=== PATIENT | female | born 1970 | race Two or more races ===

== ENCOUNTER 2019-02-02 18:25 | Inpatient (IN) | payer MEDICAID ==
[~2019-02-02] VITALS: Ht 157.5 cm; Wt 145.9 kg
[2019-02-02] MEDS ORDERED: normal saline 1000ML IV soln IV ONE (18:55)
[2019-02-02] MEDS ORDERED: clindamycin phosphate inj 600 MG in normal saline 50ml IV soln 50 ML IV ONE (18:55)
[2019-02-02] MEDS ORDERED: piperacillin/tazo 3.375gm/50ml 50 ML IV ONE (18:55)
[2019-02-02] MEDS ORDERED: vancomycin/NS 1 GM ADD-VANTAGE 250 ML IV ONE (18:55)
[2019-02-02 19:16] LABS: BASOPHILS % (AUTO) 0 % (0-1); EOSINOPHILS # (AUTO) 0.4 X10'3 (0-0.9); EOSINOPHILS % (AUTO) 1.6 % (0-6); HEMATOCRIT 40.1 % (35.0-45.0); HEMOGLOBIN 13.9 g/dl (12.0-16.0); LYMPHOCYTES # (AUTO) 1.7 X10'3 (1.1-4.8); LYMPHOCYTES % (AUTO) 7.5 % (21-51); MEAN CORPUSCULAR HEMOGLOBIN 31.7 PG (27.0-31.0); MEAN CORPUSCULAR HGB CONC 34.7 g/dL (33.0-36.5); MEAN CORPUSCULAR VOLUME 91.5 FL (78-98); MEAN PLATELET VOLUME 9.6 FL (7.4-10.4); MONOCYTES # (AUTO) 0.5 X10'3 (0-0.9); MONOCYTES % (AUTO) 2.3 % (2-12); NEUTROPHILS # (AUTO) 20.4 X10'3 (1.8-7.7); NEUTROPHILS % (AUTO) 88.6 % (42-75); PLATELET COUNT 207 X10'3 (140-440); RED BLOOD COUNT 4.38 X10'6 (4.20-5.60); RED CELL DISTRIBUTION WIDTH 12.8 % (11.5-14.5)
[2019-02-02] MEDS ORDERED: METF500T PO (19:20)
[2019-02-02] MEDS ORDERED: NPH,100V2 SQ (19:20)
[2019-02-02] MEDS ORDERED: clindamycin 600mg/D5W 50ml 50 ML IV ONE ×2 (19:21→19:40)
[2019-02-02 19:25] LABS: PARTIAL THROMBOPLASTIN TIME 23 SECONDS (22-32)
[2019-02-02 19:27] LABS: ALANINE AMINOTRANSFERASE 34 U/L (12-78); ALBUMIN 2.1 G/DL (3.4-5.0); ALBUMIN/GLOBULIN RATIO 0.4 (1.1-1.5); ALKALINE PHOSPHATASE 139 IU/L (46-116); ANION GAP 12 (8-16); ASPARTATE AMINO TRANSFERASE 15 U/L (10-37); BILIRUBIN,TOTAL 0.8 MG/DL (0.1-1.0); BLOOD UREA NITROGEN 12 MG/DL (7-18); BUN/CREATININE RATIO 18.2 (6.6-38.0); CALCIUM 7.7 MG/DL (8.5-10.1); CHLORIDE 100 MMOL/L (99-107); CREATININE 0.66 MG/DL (0.40-0.90); GLUCOSE 290 MG/DL (70-104); MAGNESIUM 1.4 MG/DL (1.5-2.4); POTASSIUM 3.5 MMOL/L (3.5-5.1); SODIUM 134 MMOL/L (135-145); TOTAL CARBON DIOXIDE 21.6 MMOL/L (24-32); TOTAL PROTEIN 6.9 G/DL (6.4-8.2); eGFR > 90 ML/MIN
--- NOTE | 2019-02-02 19:51 | NUR ---
Patient is resting comfortably in bed with no complaints at this time.
--- NOTE | 2019-02-02 20:00 | NUR ---
PATIENT IN BED COVERS ON EYES CLOSED MAKING PURPOSEFUL MOVEMENTS RR EVEN UN LABORED NO OBSERVABLE S/S OF ACUTE STRESS AT THIS TIME
[2019-02-02] MEDS ORDERED: acetaminophen 325mg tablet PO PRN ×2 (20:15)
[2019-02-02] MEDS ORDERED: potassium CL 10mEq/100ml bag 100 ML IV PRN (20:15)
[2019-02-02] MEDS ORDERED: glucagon, human recombinant 1mg kit SUBCUT PRN (20:15)
[2019-02-02] MEDS ORDERED: magnesium 4gm in 100ml NS 100 ML IV PRN (20:15)
[2019-02-02] MEDS ORDERED: dextrose ORAL solution 15 GM/59 ML bottle PO PRN ×2 (20:15)
[2019-02-02] MEDS ORDERED: dextrose 50%-water 50ml dispensing syringe IV PRN ×2 (20:15)
[2019-02-02] MEDS ORDERED: ondansetron/PF 4mg/2ml inj IV PRN (20:15)
[2019-02-02] MEDS ORDERED: MESSAGE TO PHARMACY PO ONE (20:15)
[2019-02-02] MEDS ORDERED: midazolam 2 mg/2 ml injection ONE ×2 (20:39→23:37)
[2019-02-02] MEDS ORDERED: fentaNYL /PF 50mcg/ml 5ml ampule ONE (20:40)
[2019-02-02 20:42] LABS: HEMOGLOBIN A1C 11.4 % (4.5-6.2)
[2019-02-02] MEDS: insulin glargine (Lantus) pen - multi-dose SQ SCH (21:00)
[2019-02-02] MEDS ORDERED: sevoflurane 250ml liquid IH ONE (21:15)
[2019-02-02] MEDS ORDERED: insulin regular, human vial - multi-dose ONE (22:23)
[2019-02-02] MEDS ORDERED: ipratropium/albuterol 3ml nebule NEB PRN (22:45)
[2019-02-02] MEDS ORDERED: rocuronium 10mg/ml inj IV ONE (22:59)
[2019-02-02] MEDS ORDERED: propofol inj 20 ML IV ONE (22:59)
[2019-02-02] MEDS ORDERED: succinylcholine 20mg/ml inj IV ONE (22:59)
[2019-02-02] MEDS ORDERED: LIDOcaine 2% (20mg/ml) 5ml vial ONE (22:59)
[2019-02-02] MEDS ORDERED: morphine 10mg/ml inj. ONE (22:59)
[2019-02-02] MEDS ORDERED: ketamine 50mg/5ml syringe ONE (23:20)
[2019-02-02] MEDS ORDERED: phenylephrine 10mg/ml inj. ONE (23:22)
--- NOTE | 2019-02-02 23:30 | NUR ---
patient to bed [address] mccartney at bedside, patient is to stay intubated and back to or in am
[2019-02-02] MEDS ORDERED: fentaNYL/PF 50MCG/1 ML 2ML syringe ONE (23:36)
[2019-02-02] MEDS ORDERED: insulin regular, human 10 units/0.1 ml syringe IV ONE (23:50)
[2019-02-02 23:53] VITALS: BP 151/63
[2019-02-03] VITALS (27 sets, daily range): BP systolic 85–140; BP diastolic 52–70
[2019-02-03 00:01] LABS: ABG BASE EXCESS -10.7 mmol/L (-2.0-3.0); ABG PCO2 (T) 33.2 mmHg (35.0-45.0); ABG PH (T) 7.274 (7.350-7.450); ABG PO2 (T) 225.8 mmHg (83-108); FCOHb 0.2 % (0.5-1.5); FO2Hb 98.8 % (94-100); MINUTE VOLUME 8 L/min; PATIENT TEMPERATURE 37.1; PEEP 5 cm H2O; RESPIRATORY RATE 12 b/min; RESPIRATORY RATE (OBSERVED) 12 b/min; TIDAL VOLUME 650 mL; TOTAL HEMOGLOBIN 12.2 G/dl (12.0-16.0)
[2019-02-03] MEDS ORDERED: insulin regular, human 10 units/0.1 ml syringe IV ONE (00:10)
[2019-02-03] MEDS: midazolam 100mg in NS 100ml 100 ML IV PRN (00:16)
[2019-02-03] MEDS: FENTANYL-0.9 % NACL/PF 100 ML IV PRN ×2 (00:17→21:23)
[2019-02-03 00:28] LABS: BASOPHILS # (AUTO) 0.1 X10'3 (0-0.2); BASOPHILS % (AUTO) 0.3 % (0-1); EOSINOPHILS # (AUTO) 0.1 X10'3 (0-0.9); EOSINOPHILS % (AUTO) 0.4 % (0-6); HEMATOCRIT 36.8 % (35.0-45.0); HEMOGLOBIN 12.7 g/dl (12.0-16.0); LYMPHOCYTES # (AUTO) 2.7 X10'3 (1.1-4.8); LYMPHOCYTES % (AUTO) 13.2 % (21-51); MEAN CORPUSCULAR HEMOGLOBIN 31.5 PG (27.0-31.0); MEAN CORPUSCULAR HGB CONC 34.4 g/dL (33.0-36.5); MEAN CORPUSCULAR VOLUME 91.7 FL (78-98); MEAN PLATELET VOLUME 9.8 FL (7.4-10.4); MONOCYTES # (AUTO) 0.3 X10'3 (0-0.9); MONOCYTES % (AUTO) 1.5 % (2-12); NEUTROPHILS # (AUTO) 17.4 X10'3 (1.8-7.7); NEUTROPHILS % (AUTO) 84.6 % (42-75); PLATELET COUNT 191 X10'3 (140-440); RED BLOOD COUNT 4.02 X10'6 (4.20-5.60); WHITE BLOOD COUNT 20.6 X10'3 (4.5-11.0)
[2019-02-03 00:40] LABS: PARTIAL THROMBOPLASTIN TIME 30 SECONDS (22-32)
[2019-02-03 00:43] LABS: ALANINE AMINOTRANSFERASE 27 U/L (12-78); ALBUMIN 1.7 G/DL (3.4-5.0); ALBUMIN/GLOBULIN RATIO 0.4 (1.1-1.5); ALKALINE PHOSPHATASE 114 IU/L (46-116); ANION GAP 12 (8-16); ASPARTATE AMINO TRANSFERASE 16 U/L (10-37); BILIRUBIN,TOTAL 0.7 MG/DL (0.1-1.0); BLOOD UREA NITROGEN 10 MG/DL (7-18); BUN/CREATININE RATIO 16.4 (6.6-38.0); CALCIUM 7.3 MG/DL (8.5-10.1); CHLORIDE 105 MMOL/L (99-107); CREATININE 0.61 MG/DL (0.40-0.90); GLUCOSE 202 MG/DL (70-104); MAGNESIUM 1.2 MG/DL (1.5-2.4); SODIUM 136 MMOL/L (135-145); TOTAL CARBON DIOXIDE 18.6 MMOL/L (24-32); TOTAL PROTEIN 5.6 G/DL (6.4-8.2); eGFR > 90 ML/MIN
[2019-02-03 00:44] LABS: POTASSIUM 2.6 MMOL/L (3.5-5.1)
[2019-02-03] MEDS ORDERED: potassium Cl 20 mEq SR tablet PO PRN (00:55)
--- NOTE | 2019-02-03 00:59 | NUR ---
patients contact information, daughter Maritza [phone] son Ricardo [phone]
[2019-02-03] MEDS: Potassium Cl inj 20 MEQ in ringers solution, lacted 1,000 ML IV SCH ×4 (01:06→18:10)
[2019-02-03] MEDS: piperacillin/tazo 3.375gm/50ml 50 ML IV SCH ×3 (01:06→16:07)
--- NOTE | 2019-02-03 01:41 | NUR ---
other family contact # [phone] son Emmanuel
[2019-02-03] MEDS: clindamycin 600mg/D5W 50ml 50 ML IV SCH ×4 (02:38→20:09)
--- NOTE | 2019-02-03 03:36 | NUR ---
patient in bed eyes closed rr even un labored no observable s/s of acute stress at this time
[2019-02-03] MEDS: potassium Cl 20mEq/100mL bag 100 ML IV PRN (03:53)
[2019-02-03 05:11] LABS: ABG BASE EXCESS -10.2 mmol/L (-2.0-3.0); ABG HCO3 13.8 mmol/L (22.0-26.0); ABG OXYGEN SATURATION 98.9 % (95-98); ABG PCO2 (T) 26.6 mmHg (35.0-45.0); ABG PH (T) 7.337 (7.350-7.450); ABG PO2 (T) 176.4 mmHg (83-108); FCOHb 0.4 % (0.5-1.5); FMetHb 0.1 % (0.3-1.12); FO2Hb 98.4 % (94-100); MINUTE VOLUME 9 L/min; PATIENT TEMPERATURE 37.6; PEEP 5 cm H2O; RESPIRATORY RATE 12 b/min; RESPIRATORY RATE (OBSERVED) 13 b/min; TIDAL VOLUME 650 mL; TOTAL HEMOGLOBIN 12.1 G/dl (12.0-16.0)
[2019-02-03 06:09] LABS: BASOPHILS # (AUTO) 0.1 X10'3 (0-0.2); BASOPHILS % (AUTO) 0.3 % (0-1); EOSINOPHILS # (AUTO) 0.1 X10'3 (0-0.9); EOSINOPHILS % (AUTO) 0.5 % (0-6); HEMATOCRIT 34.8 % (35.0-45.0); HEMOGLOBIN 11.9 g/dl (12.0-16.0); LYMPHOCYTES # (AUTO) 2.5 X10'3 (1.1-4.8); LYMPHOCYTES % (AUTO) 11.6 % (21-51); MEAN CORPUSCULAR HEMOGLOBIN 31.5 PG (27.0-31.0); MEAN CORPUSCULAR HGB CONC 34.2 g/dL (33.0-36.5); MEAN CORPUSCULAR VOLUME 91.9 FL (78-98); MEAN PLATELET VOLUME 10.1 FL (7.4-10.4); MONOCYTES # (AUTO) 1.4 X10'3 (0-0.9); MONOCYTES % (AUTO) 6.5 % (2-12); NEUTROPHILS # (AUTO) 17.6 X10'3 (1.8-7.7); NEUTROPHILS % (AUTO) 81.1 % (42-75); PLATELET COUNT 190 X10'3 (140-440); RED BLOOD COUNT 3.79 X10'6 (4.20-5.60); WHITE BLOOD COUNT 21.7 X10'3 (4.5-11.0)
[2019-02-03 06:18] LABS: ALANINE AMINOTRANSFERASE 22 U/L (12-78); ALBUMIN 1.6 G/DL (3.4-5.0); ALBUMIN/GLOBULIN RATIO 0.4 (1.1-1.5); ALKALINE PHOSPHATASE 113 IU/L (46-116); ANION GAP 12 (8-16); ASPARTATE AMINO TRANSFERASE 15 U/L (10-37); BILIRUBIN,TOTAL 0.7 MG/DL (0.1-1.0); BLOOD UREA NITROGEN 7 MG/DL (7-18); BUN/CREATININE RATIO 13.7 (6.6-38.0); CALCIUM 7.1 MG/DL (8.5-10.1); CHLORIDE 106 MMOL/L (99-107); CREATININE 0.51 MG/DL (0.40-0.90); GLUCOSE 217 MG/DL (70-104); MAGNESIUM 1.2 MG/DL (1.5-2.4); PHOSPHORUS 2.2 MG/DL (2.3-4.5); POTASSIUM 3.7 MMOL/L (3.5-5.1); SODIUM 138 MMOL/L (135-145); TOTAL CARBON DIOXIDE 19.6 MMOL/L (24-32); TOTAL PROTEIN 5.5 G/DL (6.4-8.2); eGFR > 90 ML/MIN
--- NOTE | 2019-02-03 06:24 | NUR ---
SBAR TO MIKAYLA RN NO QUESTIONS OR CONCERNS AFTER ASSUMING CARE
[2019-02-03] MEDS: K and/or MAG REPLACEMENT MC SCH (08:00)
[2019-02-03] MEDS: pantoprazole 40 MG vial IV SCH (08:22)
[2019-02-03] MEDS: insulin Lispro (HumaLOG) vial - multi-dose SQ SCH ×3 (08:42→20:24)
[2019-02-03 09:31] LABS: PLATELET ESTIMATE NORMAL; TOTAL CELLS COUNTED 100
[2019-02-03 09:32] LABS: TOXIC GRANULATION 1+; TOXIC VACUOLATION FEW
--- NOTE | 2019-02-03 10:26 | NUR ---
Pt resting comfortably. Pt able to answer some questions appropriately via hand squeezing and head nods and shakes. Pt stated she was having some pain,
[2019-02-03] MEDS ORDERED: UNABLE TO OBTAIN (12:35)
[2019-02-03 14:06] LABS: CLARITY,URINE SLIGHTLY CLOUDY (Clear); COLOR,URINE YELLOW (Yellow); GLUCOSE, URINE 250 mg/dl (Neg); KETONES,URINE >=80 mg/dl (Neg); LEUKOCYTE ESTERASE ,URINE NEGATIVE (Neg); NITRITES, URINE NEGATIVE (Neg); OCCULT BLOOD,URINE SMALL (Neg); PH,URINE 5.5 (4.8-8.0); PROTEIN,URINE NEGATIVE (Neg); UROBILINOGEN,URINE >=8.0 E.U/dL (0.2-1.0)
[2019-02-03 14:10] LABS: UA COLLECTION TYPE FOLEY CATH
[2019-02-03 14:20] LABS: MUCUS STRANDS FEW /LPF (Neg); SQUAMOUS EPITHELIAL CELL,UR FEW /LPF (FEW)
[2019-02-03 14:21] LABS: RBC,URINE 0-2 /HPF (0-2); WBC,URINE 0-4 /HPF (0-4)
[2019-02-03 14:22] LABS: AMORPHOUS URATES 1+; BACTERIA,URINE FEW /HPF (Neg)
--- NOTE | 2019-02-03 15:15 | NUR ---
Initial Assessment: Pt was diagnosis with Type 2 DM 6 months ago, but did not start taking medications until this Friday; A1C 11.4. Pt is admitted to the unit with dx of Lana's gangrene. s/p extensive debridement of the medial thigh and perineum for the Lana Gangrene. Pt is currently on ventilator for OR. If not, will work on weaning her off ventilator noted by MD. Continues to be NPO, will start tube feed if not going back for OR per MD. Will continue to monitor. Recommendations: 1. If TF per MD; Vital High Protein at goal rate 80ml/hr 2. Bowel care routine. 3. Weekly wt 4. Upon extubation;advance diet as medically indicated to Carb Controlled Addendum: 02/03/19 at [address] Amended: Links added. Addendum: 02/03/19 at [address] LADY Hughes
--- NOTE | 2019-02-03 15:45 | NUR ---
Pt family visiting. I verified pt home meds and last time taken. Call to pharmacy with information.
[2019-02-03] MEDS ORDERED: LISI10TA4 PO (15:55)
[2019-02-03] MEDS ORDERED: INSU100V9 SQ (15:57)
--- NOTE | 2019-02-03 18:31 | NUR ---
assumed care from Bonny RN no questions or concerns after assuming care
--- NOTE | 2019-02-03 20:00 | NUR ---
SPOKE WITH PATIENTS DAUGHTER CHRISSY GAVE AN UPDATE, PATIENT IS CURRENTLY SUPINE IN BED RR EVEN UN LABORED NO OBSERVABLE S/S OF ACUTE STRESS AT THIS TIME
[2019-02-03] MEDS: insulin glargine (Lantus) pen - multi-dose SQ SCH (20:25)
--- NOTE | 2019-02-03 23:53 | NUR ---
PATIENT IN BED EYES CLOSED RR EVEN UN LABORED NO OBSERVABLE S/S OF ACUTE STRESS AT THIS TIME
[2019-02-04] VITALS (24 sets, daily range): BP systolic 79–142; BP diastolic 33–73
[2019-02-04] MEDS: piperacillin/tazo 3.375gm/50ml 50 ML IV SCH ×4 (00:05→23:53)
[2019-02-04] MEDS: midazolam 100mg in NS 100ml 100 ML IV PRN (00:06)
[2019-02-04] MEDS: mineral oil/petrolatum ophthal oint EACHEYE SCH ×4 (01:57→20:06)
[2019-02-04] MEDS: insulin Lispro (HumaLOG) vial - multi-dose SQ SCH ×2 (01:57→20:12)
[2019-02-04] MEDS: clindamycin 600mg/D5W 50ml 50 ML IV SCH ×4 (02:02→20:05)
[2019-02-04 02:53] LABS: BASOPHILS % (AUTO) 0.3 % (0-1); EOSINOPHILS # (AUTO) 0.2 X10'3 (0-0.9); EOSINOPHILS % (AUTO) 1.4 % (0-6); HEMATOCRIT 31.1 % (35.0-45.0); HEMOGLOBIN 10.9 g/dl (12.0-16.0); LYMPHOCYTES # (AUTO) 2.6 X10'3 (1.1-4.8); LYMPHOCYTES % (AUTO) 16.3 % (21-51); MEAN CORPUSCULAR VOLUME 91.3 FL (78-98); MEAN PLATELET VOLUME 9.6 FL (7.4-10.4); MONOCYTES # (AUTO) 1.1 X10'3 (0-0.9); MONOCYTES % (AUTO) 7.3 % (2-12); NEUTROPHILS # (AUTO) 11.7 X10'3 (1.8-7.7); NEUTROPHILS % (AUTO) 74.7 % (42-75); PLATELET COUNT 172 X10'3 (140-440); WHITE BLOOD COUNT 15.7 X10'3 (4.5-11.0)
[2019-02-04 03:07] LABS: ALANINE AMINOTRANSFERASE 19 U/L (12-78); ALBUMIN 1.4 G/DL (3.4-5.0); ALBUMIN/GLOBULIN RATIO 0.4 (1.1-1.5); ALKALINE PHOSPHATASE 101 IU/L (46-116); ANION GAP 14 (8-16); ASPARTATE AMINO TRANSFERASE 12 U/L (10-37); BILIRUBIN,TOTAL 0.6 MG/DL (0.1-1.0); BLOOD UREA NITROGEN 3 MG/DL (7-18); CALCIUM 7.1 MG/DL (8.5-10.1); CHLORIDE 105 MMOL/L (99-107); CREATININE 0.43 MG/DL (0.40-0.90); GLUCOSE 190 MG/DL (70-104); MAGNESIUM 1.3 MG/DL (1.5-2.4); PHOSPHORUS 1.8 MG/DL (2.3-4.5); SODIUM 140 MMOL/L (135-145); TOTAL CARBON DIOXIDE 21.5 MMOL/L (24-32); TOTAL PROTEIN 5.2 G/DL (6.4-8.2); eGFR > 90 ML/MIN
[2019-02-04] MEDS: potassium Cl 20mEq/100mL bag 100 ML IV PRN ×4 (03:21→07:56)
[2019-02-04] MEDS: Potassium Cl inj 20 MEQ in ringers solution, lacted 1,000 ML IV SCH ×2 (03:24→15:50)
[2019-02-04] MEDS: magnesium 2GM in 50ml NS 50 ML IV PRN (03:46)
[2019-02-04 04:06] LABS: ABG HCO3 17.8 mmol/L (22.0-26.0); ABG OXYGEN SATURATION 98.3 % (95-98); FCOHb 0.3 % (0.5-1.5); FMetHb 0.3 % (0.3-1.12); FO2Hb 97.7 % (94-100); MINUTE VOLUME 8 L/min; PATIENT TEMPERATURE 37.6; PEEP 5 cm H2O; RESPIRATORY RATE 12 b/min; RESPIRATORY RATE (OBSERVED) 12 b/min; TIDAL VOLUME 650 mL; TOTAL HEMOGLOBIN 10.8 G/dl (12.0-16.0)
--- NOTE | 2019-02-04 06:20 | NUR ---
SBAR TO GABINO RN NO QUESTIONS OR CONCERNS AFTER ASSUMING CARE
[2019-02-04] MEDS: pantoprazole 40 MG vial IV SCH (07:57)
[2019-02-04] MEDS: K and/or MAG REPLACEMENT MC SCH (08:40)
[2019-02-04 10:09] LABS: MAGNESIUM 1.6 MG/DL (1.5-2.4); POTASSIUM 4.2 MMOL/L (3.5-5.1)
[2019-02-04] MEDS ORDERED: VANCOMYCIN LEVEL IV ONE (11:30)
[2019-02-04] MEDS ORDERED: sevoflurane 250ml liquid IH ONE (14:57)
--- NOTE | 2019-02-04 15:11 | NUR ---
Pt to OR with OR team.
--- NOTE | 2019-02-04 16:30 | NUR ---
Pt back form OR no apparent distress VSS will cont to monitor
[2019-02-04] MEDS: FENTANYL-0.9 % NACL/PF 100 ML IV PRN (16:38)
--- NOTE | 2019-02-04 18:29 | NUR ---
Assumed care from Nano RN no questions or concerns after assuming care
[2019-02-04] MEDS: lactobacillus rhamnosus 10,000 MMU CELLS/CAPSULE PO SCH (20:05)
[2019-02-04] MEDS: insulin glargine (Lantus) pen - multi-dose SQ SCH (20:15)
--- NOTE | 2019-02-04 21:40 | NUR ---
spoke with patients daughter "Maritza" gave patient update, patient currently supine in bed eyes closed rr even un labored no observable s/s of acute stress at this time
[2019-02-05] VITALS (24 sets, daily range): BP systolic 94–130; BP diastolic 50–79
--- NOTE | 2019-02-05 | NUR ---
patient in bed eyes closed rr even un labored no observable s/s of acute stress at this time
[2019-02-05] MEDS: Potassium Cl inj 20 MEQ in ringers solution, lacted 1,000 ML IV SCH ×3 (01:56→10:05)
[2019-02-05] MEDS: clindamycin 600mg/D5W 50ml 50 ML IV SCH ×4 (01:56→21:05)
[2019-02-05] MEDS: mineral oil/petrolatum ophthal oint EACHEYE SCH ×4 (01:56→21:05)
[2019-02-05] MEDS: insulin Lispro (HumaLOG) vial - multi-dose SQ SCH ×2 (02:07→09:30)
--- NOTE | 2019-02-05 02:50 | NUR ---
patients fever broke currently 37.2, rr even un labored no observable s/s of acute stress at this time
[2019-02-05 03:49] LABS: BASOPHILS % (AUTO) 0.1 % (0-1); EOSINOPHILS # (AUTO) 0.2 X10'3 (0-0.9); EOSINOPHILS % (AUTO) 1.4 % (0-6); HEMATOCRIT 31.8 % (35.0-45.0); LYMPHOCYTES # (AUTO) 2.6 X10'3 (1.1-4.8); LYMPHOCYTES % (AUTO) 16.3 % (21-51); MEAN CORPUSCULAR HGB CONC 34.6 g/dL (33.0-36.5); MEAN CORPUSCULAR VOLUME 92.4 FL (78-98); MEAN PLATELET VOLUME 9.2 FL (7.4-10.4); MONOCYTES # (AUTO) 1.1 X10'3 (0-0.9); MONOCYTES % (AUTO) 6.9 % (2-12); NEUTROPHILS # (AUTO) 11.9 X10'3 (1.8-7.7); NEUTROPHILS % (AUTO) 75.3 % (42-75); PLATELET COUNT 191 X10'3 (140-440); RED BLOOD COUNT 3.44 X10'6 (4.20-5.60); RED CELL DISTRIBUTION WIDTH 13.1 % (11.5-14.5); WHITE BLOOD COUNT 15.8 X10'3 (4.5-11.0)
[2019-02-05 04:00] LABS: ALANINE AMINOTRANSFERASE 17 U/L (12-78); ALBUMIN 1.4 G/DL (3.4-5.0); ALBUMIN/GLOBULIN RATIO 0.4 (1.1-1.5); ALKALINE PHOSPHATASE 100 IU/L (46-116); ANION GAP 6 (8-16); ASPARTATE AMINO TRANSFERASE 14 U/L (10-37); BILIRUBIN,TOTAL 0.7 MG/DL (0.1-1.0); BLOOD UREA NITROGEN 2 MG/DL (7-18); BUN/CREATININE RATIO 4.2 (6.6-38.0); CHLORIDE 105 MMOL/L (99-107); CREATININE 0.48 MG/DL (0.40-0.90); GLUCOSE 168 MG/DL (70-104); MAGNESIUM 1.3 MG/DL (1.5-2.4); PHOSPHORUS 2.4 MG/DL (2.3-4.5); POTASSIUM 3.5 MMOL/L (3.5-5.1); SODIUM 137 MMOL/L (135-145); TOTAL CARBON DIOXIDE 25.6 MMOL/L (24-32); TOTAL PROTEIN 5.4 G/DL (6.4-8.2); eGFR > 90 ML/MIN
[2019-02-05] MEDS: FENTANYL-0.9 % NACL/PF 100 ML IV PRN (04:29)
[2019-02-05] MEDS: magnesium 2GM in 50ml NS 50 ML IV PRN (04:29)
[2019-02-05 04:41] LABS: ABG BASE EXCESS -1.6 mmol/L (-2.0-3.0); ABG HCO3 22.3 mmol/L (22.0-26.0); ABG OXYGEN SATURATION 96.2 % (95-98); ABG PCO2 (T) 35.3 mmHg (35.0-45.0); ABG PH (T) 7.419 (7.350-7.450); ABG PO2 (T) 83.3 mmHg (83-108); FCOHb 0.1 % (0.5-1.5); FMetHb 0.3 % (0.3-1.12); FO2Hb 95.8 % (94-100); MINUTE VOLUME 8 L/min; PATIENT TEMPERATURE 37.4; PEEP 5 cm H2O; RESPIRATORY RATE 12 b/min; RESPIRATORY RATE (OBSERVED) 12 b/min; TIDAL VOLUME 600 mL; TOTAL HEMOGLOBIN 12.1 G/dl (12.0-16.0)
--- NOTE | 2019-02-05 04:51 | NUR ---
washed and cleaned patients head and put hair in a braid, patient appeared to enjoy getting hair brushed, patients rr even un labored no observable s/s of acute stress at this time
--- NOTE | 2019-02-05 06:29 | NUR ---
SBAR to Radha OSBORN no questions or concerns after assuming care
[2019-02-05] MEDS ORDERED: VANCOMYCIN LEVEL IV ONE (07:30)
[2019-02-05] MEDS: K and/or MAG REPLACEMENT MC SCH (08:00)
[2019-02-05] MEDS: lactobacillus rhamnosus 10,000 MMU CELLS/CAPSULE PO SCH ×2 (08:07→21:17)
[2019-02-05] MEDS: piperacillin/tazo 3.375gm/50ml 50 ML IV SCH ×3 (08:08→17:29)
[2019-02-05] MEDS: pantoprazole 40 MG vial IV SCH (08:13)
--- NOTE | 2019-02-05 10:51 | NUR ---
paged dr guzman regarding feeding for this patient
--- NOTE | 2019-02-05 10:53 | NUR ---
patient will remain intubated for surgery tomorrow per Dr. Adams
[2019-02-05] MEDS: midazolam 100mg in NS 100ml 100 ML IV PRN (15:51)
[2019-02-05] MEDS: vancomycin/NS 1 GM ADD-VANTAGE 250 ML IV SCH ×2 (15:57→21:54)
--- NOTE | 2019-02-05 16:57 | NUR ---
WOUND ADDRESSED, SEROUS FLUID NOTED ON UNDERWEAR AND PADS UNDERNEATH BUT, WOUND REMAINS PACKED. abd PAD APPLIED TO PROTECT THE AREA AND SOILED UNDERWEAR REMOVED. NEW DRY PADS REPLACED.
--- NOTE | 2019-02-05 17:21 | NUR ---
Reassessment(02/05): Pt is on ventilator with no vasopressor and very limited amount of sedation per RN. Has perineal wound s/p debridement yesterday. Expecting to go back to OR tomorrow per surgeon. Per MD if rectal tube place successfully to avoid soiling of the perineum, RN to discuss with surgeon if diverting colostomy is appropriate given patient's wound healing needs and hopeful start of tube feeding to provide adequate protein for wound heal. If weaning off unsuccessfully, patient may benefit from tube feeding. TF recs with Vital High Protein at goal rate 80ml/hr. Will continue to monitor. Recommendations: 1. If TF per MD; Vital High Protein at goal rate 80ml/hr 2. If tube feeding, prealbumin q friday and , daily wt 3. Upon extubation;advance diet as medically indicated to Carb Controlled Addendum: 02/05/19 at [address] Amended: Links added.
--- NOTE | 2019-02-05 18:07 | NUR ---
og TUBE REPLACED
--- NOTE | 2019-02-05 18:19 | NUR ---
Problems reprioritized. Patient report given, questions answered & plan of care reviewed with Kiel Stephen RN.
--- NOTE | 2019-02-05 18:30 | NUR ---
Patient in room CICU 2007. I have received report from Radha OSBORN and had the opportunity to ask questions and assume patient care.
[2019-02-05] MEDS: insulin glargine (Lantus) pen - multi-dose SQ SCH (21:20)
[2019-02-06] VITALS (23 sets, daily range): BP systolic 87–134; BP diastolic 46–87
[2019-02-06] MEDS: FENTANYL-0.9 % NACL/PF 100 ML IV PRN ×2 (00:57→18:25)
[2019-02-06] MEDS: mineral oil/petrolatum ophthal oint EACHEYE SCH ×4 (02:24→20:49)
[2019-02-06] MEDS: clindamycin 600mg/D5W 50ml 50 ML IV SCH ×4 (02:24→20:49)
[2019-02-06 02:58] LABS: BASOPHILS # (AUTO) 0.1 X10'3 (0-0.2); BASOPHILS % (AUTO) 0.8 % (0-1); EOSINOPHILS # (AUTO) 0.2 X10'3 (0-0.9); EOSINOPHILS % (AUTO) 1.7 % (0-6); HEMATOCRIT 30.4 % (35.0-45.0); HEMOGLOBIN 10.7 g/dl (12.0-16.0); LYMPHOCYTES # (AUTO) 2.3 X10'3 (1.1-4.8); LYMPHOCYTES % (AUTO) 17.1 % (21-51); MEAN CORPUSCULAR HEMOGLOBIN 32.3 PG (27.0-31.0); MEAN CORPUSCULAR HGB CONC 35.3 g/dL (33.0-36.5); MEAN CORPUSCULAR VOLUME 91.5 FL (78-98); MEAN PLATELET VOLUME 8.5 FL (7.4-10.4); MONOCYTES # (AUTO) 0.9 X10'3 (0-0.9); NEUTROPHILS # (AUTO) 9.7 X10'3 (1.8-7.7); NEUTROPHILS % (AUTO) 73.4 % (42-75); PLATELET COUNT 198 X10'3 (140-440); RED BLOOD COUNT 3.32 X10'6 (4.20-5.60); RED CELL DISTRIBUTION WIDTH 12.9 % (11.5-14.5); WHITE BLOOD COUNT 13.2 X10'3 (4.5-11.0)
[2019-02-06 03:06] LABS: ALANINE AMINOTRANSFERASE 15 U/L (12-78); ALBUMIN 1.2 G/DL (3.4-5.0); ALBUMIN/GLOBULIN RATIO 0.3 (1.1-1.5); ALKALINE PHOSPHATASE 92 IU/L (46-116); ANION GAP 8 (8-16); ASPARTATE AMINO TRANSFERASE 16 U/L (10-37); BILIRUBIN,TOTAL 0.6 MG/DL (0.1-1.0); BLOOD UREA NITROGEN 2 MG/DL (7-18); BUN/CREATININE RATIO 4.1 (6.6-38.0); CALCIUM 7.2 MG/DL (8.5-10.1); CHLORIDE 104 MMOL/L (99-107); CREATININE 0.49 MG/DL (0.40-0.90); GLUCOSE 142 MG/DL (70-104); MAGNESIUM 1.5 MG/DL (1.5-2.4); PHOSPHORUS 2.9 MG/DL (2.3-4.5); POTASSIUM 3.2 MMOL/L (3.5-5.1); SODIUM 138 MMOL/L (135-145); TOTAL CARBON DIOXIDE 26.4 MMOL/L (24-32); TOTAL PROTEIN 5.4 G/DL (6.4-8.2); eGFR > 90 ML/MIN
[2019-02-06] MEDS: vancomycin/NS 1 GM ADD-VANTAGE 250 ML IV SCH ×4 (03:35→20:49)
[2019-02-06] MEDS: potassium Cl 20mEq/100mL bag 100 ML IV PRN ×2 (03:46→05:11)
[2019-02-06 04:06] LABS: ABG BASE EXCESS 0.2 mmol/L (-2.0-3.0); ABG HCO3 23.5 mmol/L (22.0-26.0); ABG OXYGEN SATURATION 96.6 % (95-98); ABG PCO2 (T) 34.2 mmHg (35.0-45.0); ABG PH (T) 7.457 (7.350-7.450); ABG PO2 (T) 88.1 mmHg (83-108); FCOHb 0.1 % (0.5-1.5); FMetHb 0.3 % (0.3-1.12); FO2Hb 96.2 % (94-100); MINUTE VOLUME 8 L/min; PATIENT TEMPERATURE 37.4; PEEP 5 cm H2O; RESPIRATORY RATE 12 b/min; RESPIRATORY RATE (OBSERVED) 12 b/min; TIDAL VOLUME 600 mL; TOTAL HEMOGLOBIN 11.5 G/dl (12.0-16.0)
[2019-02-06 04:56] LABS: TOTAL CELLS COUNTED 100
[2019-02-06 04:58] LABS: PLATELET ESTIMATE NORMAL
[2019-02-06 04:59] LABS: TOXIC GRANULATION 3+
[2019-02-06 05:00] LABS: SMUDGE CELLS 2+
[2019-02-06] MEDS: Potassium Cl inj 20 MEQ in ringers solution, lacted 1,000 ML IV SCH ×2 (05:11→18:30)
--- NOTE | 2019-02-06 06:21 | NUR ---
Patient in room CICU 2008. I have received report from Malgorzata OSBORN and had the opportunity to ask questions and assume patient care.
--- NOTE | 2019-02-06 06:36 | NUR ---
Problems reprioritized. Patient report given, questions answered & plan of care reviewed with Malgorzata OSBORN.
[2019-02-06] MEDS ORDERED: VANCOMYCIN LEVEL IV ONE (07:30)
[2019-02-06] MEDS: pantoprazole 40 MG vial IV SCH (08:01)
[2019-02-06] MEDS: piperacillin/tazo 3.375gm/50ml 50 ML IV SCH ×2 (08:01→15:38)
[2019-02-06] MEDS: lactobacillus rhamnosus 10,000 MMU CELLS/CAPSULE PO SCH ×2 (08:01→20:49)
[2019-02-06 08:22] LABS: VANCOMYCIN,TROUGH 18.8 UG/ML (6.0-14.0)
[2019-02-06 08:27] LABS: POTASSIUM 3.7 MMOL/L (3.5-5.1)
[2019-02-06] MEDS ORDERED: ringers solution, lacted 1,000 ML IV SCH (09:36)
[2019-02-06] MEDS ORDERED: meperidine/PF 25mg/ml syringe IV PRN ×3 (09:40)
[2019-02-06] MEDS ORDERED: proCHLORperazine 10 MG/2 ml inj IV PRN (09:40)
[2019-02-06] MEDS ORDERED: ondansetron/PF 4mg/2ml inj IV PRN (09:40)
[2019-02-06] MEDS ORDERED: morphine 4 MG/ML inj SYRINge IV PRN ×2 (09:40)
[2019-02-06] MEDS ORDERED: sevoflurane 250ml liquid IH ONE (10:38)
[2019-02-06] MEDS ORDERED: fentaNYL /PF 50mcg/ml 5ml ampule ONE (10:50)
--- NOTE | 2019-02-06 11:14 | NUR ---
Per Dr. Adams's verbal orders, telephone consent was obtained from Ricardo (son) of the patient for a debridement of the perineum and wound vac placement w/ two RNs
[2019-02-06] MEDS: insulin Lispro (HumaLOG) vial - multi-dose SQ SCH (14:26)
--- NOTE | 2019-02-06 15:59 | NUR ---
02/06 Reassessment: Pt s/p repeat debridement with wound VAC placement today. Per MD notes pt started on TPN however no consult or TPN diet order at this time. D/w RN who states that was an error and pt is in fact not to start TPN at this time however MD to consider EN tomorrow if unable to extubate. TF recommendations below remain in place. Will f/u tomorrow. Reassessment(02/05): Pt is on ventilator with no vasopressor and very limited amount of sedation per RN. Has perineal wound s/p debridement yesterday. Expecting to go back to OR tomorrow per surgeon. Per MD if rectal tube place successfully to avoid soiling of the perineum, RN to discuss with surgeon if diverting colostomy is appropriate given patient's wound healing needs and hopeful start of tube feeding to provide adequate protein for wound heal. If weaning off unsuccessfully, patient may benefit from tube feeding. TF recs with Vital High Protein at goal rate 80ml/hr. Will continue to monitor. Recommendations: 1. If TF per MD; Vital High Protein with goal rate of 80 mL/hr 2. If tube feeding, prealbumin q Friday and , daily wt 3. Upon extubation; advance diet as medically indicated to Carb Controlled Addendum: 02/06/19 at [address] Amended: Links added.
--- NOTE | 2019-02-06 18:30 | NUR ---
Patient in room CICU 2008. I have received report from Malgorzata and had the opportunity to ask questions and assume patient care.
[2019-02-06] MEDS: insulin glargine (Lantus) pen - multi-dose SQ SCH (21:11)
[2019-02-07] VITALS (24 sets, daily range): BP systolic 87–135; BP diastolic 51–90
[2019-02-07] MEDS: piperacillin/tazo 3.375gm/50ml 50 ML IV SCH ×3 (00:38→15:25)
[2019-02-07] MEDS: mineral oil/petrolatum ophthal oint EACHEYE SCH ×4 (02:57→18:58)
[2019-02-07] MEDS: clindamycin 600mg/D5W 50ml 50 ML IV SCH ×4 (02:58→20:00)
[2019-02-07] MEDS: vancomycin/NS 1 GM ADD-VANTAGE 250 ML IV SCH ×4 (02:58→20:00)
[2019-02-07 03:20] LABS: BASOPHILS % (AUTO) 0.2 % (0-1); EOSINOPHILS # (AUTO) 0.2 X10'3 (0-0.9); EOSINOPHILS % (AUTO) 1.6 % (0-6); HEMATOCRIT 29.9 % (35.0-45.0); HEMOGLOBIN 10.4 g/dl (12.0-16.0); LYMPHOCYTES # (AUTO) 2.9 X10'3 (1.1-4.8); LYMPHOCYTES % (AUTO) 20.8 % (21-51); MEAN CORPUSCULAR HEMOGLOBIN 32.2 PG (27.0-31.0); MEAN CORPUSCULAR HGB CONC 34.9 g/dL (33.0-36.5); MEAN CORPUSCULAR VOLUME 92.3 FL (78-98); MEAN PLATELET VOLUME 8.2 FL (7.4-10.4); MONOCYTES % (AUTO) 7.2 % (2-12); NEUTROPHILS # (AUTO) 9.7 X10'3 (1.8-7.7); NEUTROPHILS % (AUTO) 70.2 % (42-75); PLATELET COUNT 215 X10'3 (140-440); RED BLOOD COUNT 3.24 X10'6 (4.20-5.60); RED CELL DISTRIBUTION WIDTH 13.3 % (11.5-14.5); WHITE BLOOD COUNT 13.7 X10'3 (4.5-11.0)
[2019-02-07 03:39] LABS: ALANINE AMINOTRANSFERASE 14 U/L (12-78); ALBUMIN 1.2 G/DL (3.4-5.0); ALBUMIN/GLOBULIN RATIO 0.3 (1.1-1.5); ALKALINE PHOSPHATASE 112 IU/L (46-116); ANION GAP 7 (8-16); ASPARTATE AMINO TRANSFERASE 20 U/L (10-37); BILIRUBIN,TOTAL 0.6 MG/DL (0.1-1.0); BLOOD UREA NITROGEN 5 MG/DL (7-18); BUN/CREATININE RATIO 8.1 (6.6-38.0); CALCIUM 7.4 MG/DL (8.5-10.1); CHLORIDE 108 MMOL/L (99-107); CREATININE 0.62 MG/DL (0.40-0.90); GLUCOSE 134 MG/DL (70-104); MAGNESIUM 1.6 MG/DL (1.5-2.4); PHOSPHORUS 3.6 MG/DL (2.3-4.5); POTASSIUM 3.7 MMOL/L (3.5-5.1); SODIUM 142 MMOL/L (135-145); TOTAL CARBON DIOXIDE 27.2 MMOL/L (24-32); TOTAL PROTEIN 5.7 G/DL (6.4-8.2); eGFR > 90 ML/MIN
[2019-02-07 03:56] LABS: ABG BASE EXCESS 0.7 mmol/L (-2.0-3.0); ABG OXYGEN SATURATION 95.6 % (95-98); ABG PCO2 (T) 33.6 mmHg (35.0-45.0); ABG PH (T) 7.471 (7.350-7.450); ABG PO2 (T) 78.1 mmHg (83-108); FCOHb 0.1 % (0.5-1.5); FMetHb 0.3 % (0.3-1.12); FO2Hb 95.2 % (94-100); MINUTE VOLUME 8 L/min; PEEP 5 cm H2O; RESPIRATORY RATE 12 b/min; RESPIRATORY RATE (OBSERVED) 12 b/min; TIDAL VOLUME 600 mL
--- NOTE | 2019-02-07 06:22 | NUR ---
Problems reprioritized. Patient report given, questions answered & plan of care reviewed with Crystal OSBORN.
[2019-02-07] MEDS ORDERED: furosemide 40mg/4ml inj IV ONE (08:45)
[2019-02-07] MEDS: Potassium Cl inj 20 MEQ in ringers solution, lacted 1,000 ML IV SCH ×2 (08:50→22:59)
[2019-02-07] MEDS: lactobacillus rhamnosus 10,000 MMU CELLS/CAPSULE PO SCH ×2 (08:50→20:00)
[2019-02-07] MEDS: pantoprazole 40 MG vial IV SCH (08:50)
--- NOTE | 2019-02-07 11:12 | NUR ---
F/u: Pt day 5 no nutrition since admit w/ wound healing needs s/p I&D. Plan to extubate today and if fails will start TF per RN. No BM yet this admit. TF recs below given wound healing needs. 02/06 Reassessment: Pt s/p repeat debridement with wound VAC placement today. Per MD notes pt started on TPN however no consult or TPN diet order at this time. D/w RN who states that was an error and pt is in fact not to start TPN at this time however MD to consider EN tomorrow if unable to extubate. TF recommendations below remain in place. Will f/u tomorrow. Recommendations: 1. If TF per MD; Vital High Protein with goal rate of 80 mL/hr 2. If tube feeding, prealbumin q Friday and , daily wt 3. Upon extubation; advance diet as medically indicated to Carb Controlled Addendum: 02/07/19 at [address] Amended: Links added.
[2019-02-07] MEDS: dexamethasone 4mg/ml inj IV SCH ×2 (13:53→20:00)
--- NOTE | 2019-02-07 14:18 | NUR ---
TF Consult: TF to start today per MD. Will monitor for TF tolerance. F/u: Pt day 5 no nutrition since admit w/ wound healing needs s/p I&D. Plan to extubate today and if fails will start TF per RN. No BM yet this admit. TF recs below given wound healing needs. Recommendations: 1. OGTF per MD; Vital High Protein with goal rate of 85mL/hr goal; to provide 2040ml fluid, 1714ml free water, 2040kcals, and 179g protein. 2. water flush 200ml Q4 4. prealbumin q Friday and , daily wt 5. Upon extubation; advance diet as medically indicated to Carb Controlled Addendum: 02/07/19 at [address] Amended: Links added.
[2019-02-07] MEDS: midazolam 100mg in NS 100ml 100 ML IV PRN (15:25)
[2019-02-07] MEDS: FENTANYL-0.9 % NACL/PF 100 ML IV PRN (15:26)
--- NOTE | 2019-02-07 16:05 | NUR ---
Patient self extubated, called Aliyah, RT, patient on room air, oxygen saturation 99%. Dr. Victor was notified.
--- NOTE | 2019-02-07 16:31 | NUR ---
02/07/2019 AT 1600, RECEIVED CALL FROM ICU NURSE STATING THAT PT HAD A CUFF LEAK, ARRIVED TO ROOM AT 1605 TO FIND THE VENT ALARMING PT DISCONNECTED AND THE ETT PULLED OUT, ETT CUFF WAS VISIBLE BEHIND PT'S TEETH UPON INSPECTION. PT HAD SELF EXTUBATED. PT CURRENTLY ON RA SPO2 97%-100%, NO SOB OR RESPIRATORY DISTRESS NOTED. WILL CONTINUE TO MONITOR PT'S RESPIRATORY STATUS. Addendum: 02/07/19 at 1635 by Asia Rosales RT Amended: Links added.
--- NOTE | 2019-02-07 19:00 | NUR ---
Patient in room CICU 2008. I have received report from Crystal Kimbrough RN and had the opportunity to ask questions and assume patient care.
--- NOTE | 2019-02-07 19:01 | NUR ---
Patient report given to ANURAG Hammonds.
[2019-02-07] MEDS: insulin regular, human vial - multi-dose SQ SCH (23:11)
[2019-02-07] MEDS: insulin glargine (Lantus) pen - multi-dose SQ SCH (23:13)
[2019-02-08] VITALS (24 sets, daily range): BP systolic 95–137; BP diastolic 62–89
[2019-02-08] MEDS: piperacillin/tazo 3.375gm/50ml 50 ML IV SCH ×3 (00:15→15:41)
[2019-02-08] MEDS: mineral oil/petrolatum ophthal oint EACHEYE SCH ×3 (02:00→14:46)
[2019-02-08] MEDS: vancomycin/NS 1 GM ADD-VANTAGE 250 ML IV SCH (03:18)
[2019-02-08] MEDS: clindamycin 600mg/D5W 50ml 50 ML IV SCH ×4 (03:19→20:37)
[2019-02-08] MEDS: dexamethasone 4mg/ml inj IV SCH ×2 (03:19→09:46)
[2019-02-08] MEDS: insulin regular, human vial - multi-dose SQ SCH ×3 (03:20→14:48)
[2019-02-08 05:31] LABS: BASOPHILS % (AUTO) 0.2 % (0-1); EOSINOPHILS % (AUTO) 0 % (0-6); HEMATOCRIT 33.7 % (35.0-45.0); HEMOGLOBIN 11.7 g/dl (12.0-16.0); LYMPHOCYTES # (AUTO) 1.4 X10'3 (1.1-4.8); LYMPHOCYTES % (AUTO) 12.7 % (21-51); MEAN CORPUSCULAR HEMOGLOBIN 32.2 PG (27.0-31.0); MEAN CORPUSCULAR HGB CONC 34.7 g/dL (33.0-36.5); MEAN CORPUSCULAR VOLUME 92.7 FL (78-98); MEAN PLATELET VOLUME 8.2 FL (7.4-10.4); MONOCYTES # (AUTO) 0.4 X10'3 (0-0.9); MONOCYTES % (AUTO) 3.4 % (2-12); NEUTROPHILS # (AUTO) 9.3 X10'3 (1.8-7.7); NEUTROPHILS % (AUTO) 83.7 % (42-75); PLATELET COUNT 241 X10'3 (140-440); RED BLOOD COUNT 3.64 X10'6 (4.20-5.60); WHITE BLOOD COUNT 11.2 X10'3 (4.5-11.0)
[2019-02-08 05:35] LABS: ALANINE AMINOTRANSFERASE 10 U/L (12-78); ALBUMIN 1.3 G/DL (3.4-5.0); ALBUMIN/GLOBULIN RATIO 0.3 (1.1-1.5); ALKALINE PHOSPHATASE 99 IU/L (46-116); ANION GAP 8 (8-16); ASPARTATE AMINO TRANSFERASE 17 U/L (10-37); BILIRUBIN,TOTAL 0.6 MG/DL (0.1-1.0); BLOOD UREA NITROGEN 10 MG/DL (7-18); BUN/CREATININE RATIO 12.2 (6.6-38.0); CHLORIDE 107 MMOL/L (99-107); CREATININE 0.82 MG/DL (0.40-0.90); GLUCOSE 214 MG/DL (70-104); MAGNESIUM 1.6 MG/DL (1.5-2.4); PHOSPHORUS 4.3 MG/DL (2.3-4.5); SODIUM 143 MMOL/L (135-145); TOTAL CARBON DIOXIDE 28.5 MMOL/L (24-32); TOTAL PROTEIN 6.4 G/DL (6.4-8.2); eGFR 74 ML/MIN
--- NOTE | 2019-02-08 06:59 | NUR ---
Problems reprioritized. Patient report given, questions answered & plan of care reviewed with Evi Arevalo RN.
[2019-02-08] MEDS ORDERED: FENTANYL-0.9 % NACL/PF 100 ML IV PRN (08:53)
[2019-02-08] MEDS ORDERED: midazolam 100mg in NS 100ml 100 ML IV PRN (08:53)
[2019-02-08] MEDS: lactobacillus rhamnosus 10,000 MMU CELLS/CAPSULE PO SCH ×2 (09:46→20:39)
[2019-02-08] MEDS: pantoprazole 40 MG vial IV SCH (09:46)
--- NOTE | 2019-02-08 11:15 | NUR ---
WOUND INFECTION EDUCATION PROVIDED BY WOUND CARE 1. Patient instructed to call their primary doctor, or go the ED immediately if any of the following symptoms occur: * Increased pain in wound * Increase in drainage from the wound * Redness in the skin surrounding the wound * Warmth in the skin surrounding the wound * Bleeding from the wound * Temperature of 101 or greater 2. If any of these occur while in the hospital tell a nurse immediately. Addendum: 02/08/19 at 1115 by Delmy Pelayo RN Amended: Links added.
[2019-02-08] MEDS: HYDROmorphone/NS 1 mg/ml CADD 50 ML IV SCH ×7 (12:01→23:00)
[2019-02-08] MEDS ORDERED: VANCOMYCIN LEVEL IV ONE (13:30)
[2019-02-08] MEDS: Potassium Cl inj 20 MEQ in ringers solution, lacted 1,000 ML IV SCH (14:15)
--- NOTE | 2019-02-08 14:43 | NUR ---
F/U (02/08): Pt extubated herself yesterday per RN. TF discontinued after extubation. Pt is awake, talking to the family member by bedside. Pt is going back to OR tomorrow per RN. Pt has a wound vac to her right groin. Hoping to request for BSS and resume po diet discussed with RN and fixed income director during rounds. RN will will discuss with surgeon. If pt tolerates clear liquid recommend to advance as medically indicated to carb controlled with ONS for wound healing. [facility] 02/02.Will continue to monitor. Recommendations: 1. Advance diet as medically indicated to carb controlled, texture per speech therapist recs. 2. When diet advanced monitor need for ONS if suboptimal PO intake to meet nutrition needs for wound healing. 3. Rec. bowel care due to LBM 02/02 4. wt per rx Addendum: 02/08/19 at [address] Amended: Links added. Addendum: 02/08/19 at [address] LADY reviewed and agree with note
[2019-02-08] MEDS: insulin glargine (Lantus) pen - multi-dose SQ SCH (20:46)
[2019-02-08] MEDS: insulin Lispro (HumaLOG) vial - multi-dose SQ SCH (20:47)
[2019-02-09] VITALS (18 sets, daily range): BP systolic 93–127; BP diastolic 59–93
[2019-02-09] MEDS: piperacillin/tazo 3.375gm/50ml 50 ML IV SCH ×4 (00:22→23:40)
[2019-02-09] MEDS: HYDROmorphone/NS 1 mg/ml CADD 50 ML IV SCH ×12 (00:27→23:00)
[2019-02-09] MEDS: clindamycin 600mg/D5W 50ml 50 ML IV SCH ×4 (02:57→19:41)
[2019-02-09] MEDS: Potassium Cl inj 20 MEQ in ringers solution, lacted 1,000 ML IV SCH (03:42)
[2019-02-09 04:45] LABS: ALANINE AMINOTRANSFERASE 12 U/L (12-78); ALBUMIN 1.5 G/DL (3.4-5.0); ALBUMIN/GLOBULIN RATIO 0.3 (1.1-1.5); ALKALINE PHOSPHATASE 87 IU/L (46-116); ANION GAP 7 (8-16); ASPARTATE AMINO TRANSFERASE 20 U/L (10-37); BILIRUBIN,TOTAL 0.5 MG/DL (0.1-1.0); BLOOD UREA NITROGEN 13 MG/DL (7-18); BUN/CREATININE RATIO 14.6 (6.6-38.0); CALCIUM 8.4 MG/DL (8.5-10.1); CHLORIDE 106 MMOL/L (99-107); CREATININE 0.89 MG/DL (0.40-0.90); GLUCOSE 140 MG/DL (70-104); MAGNESIUM 1.6 MG/DL (1.5-2.4); PHOSPHORUS 3.4 MG/DL (2.3-4.5); POTASSIUM 3.5 MMOL/L (3.5-5.1); SODIUM 143 MMOL/L (135-145); TOTAL CARBON DIOXIDE 30.1 MMOL/L (24-32); TOTAL PROTEIN 6.2 G/DL (6.4-8.2); eGFR 67 ML/MIN
[2019-02-09 04:47] LABS: BASOPHILS % (AUTO) 0.2 % (0-1); EOSINOPHILS # (AUTO) 0.1 X10'3 (0-0.9); EOSINOPHILS % (AUTO) 0.9 % (0-6); HEMATOCRIT 31.3 % (35.0-45.0); HEMOGLOBIN 10.8 g/dl (12.0-16.0); LYMPHOCYTES # (AUTO) 3.2 X10'3 (1.1-4.8); LYMPHOCYTES % (AUTO) 28.4 % (21-51); MEAN CORPUSCULAR HEMOGLOBIN 31.7 PG (27.0-31.0); MEAN CORPUSCULAR HGB CONC 34.5 g/dL (33.0-36.5); MEAN PLATELET VOLUME 7.9 FL (7.4-10.4); MONOCYTES # (AUTO) 0.7 X10'3 (0-0.9); MONOCYTES % (AUTO) 6.2 % (2-12); NEUTROPHILS # (AUTO) 7.2 X10'3 (1.8-7.7); NEUTROPHILS % (AUTO) 64.3 % (42-75); PLATELET COUNT 253 X10'3 (140-440); WHITE BLOOD COUNT 11.2 X10'3 (4.5-11.0)
--- NOTE | 2019-02-09 06:28 | NUR ---
RN Note -Shift Summary Wound Vac has remained in place without issue since being changed at beginning of shift. Pt has reported that pain has been well controlled with ACID STRENGTH INSPECTOR pump. Family is staying at [facility]; left after java j2ee lead visit.
[2019-02-09] MEDS: pantoprazole 40 MG vial IV SCH (07:19)
[2019-02-09] MEDS: lactobacillus rhamnosus 10,000 MMU CELLS/CAPSULE PO SCH ×2 (07:20→19:41)
[2019-02-09] MEDS ORDERED: dexamethasone 4mg/ml inj IV SCH (08:00)
[2019-02-09] MEDS: insulin Lispro (HumaLOG) vial - multi-dose SQ SCH (14:21)
--- NOTE | 2019-02-09 14:59 | NUR ---
DMeducation (02/09): Pt is transferring up to the floor today. Pt stated feeling better than yesterday. RD provided basic verbal and written DM education and verbally discussed need for high protein for wound healing to the pt and family at bedside. Pt was able to retain partial information. Pt reported that she attend DM and cooking classes in [place]. Pt admitted not follow medical and diet instruction previously, but seemed motivated and ready for the changing in lifestyle. Pt stated with poor appetite currently, may due to recent extubation. LBM 02/02. Continue clear liquid diet; advance diet as medically indicated to carb controlled. Monitor po intake and protein intake, hoping to have an avg >65% Rec.ONS as needed for wound healing. Will continue to monitor. Recommendations: 1. Advance diet as medically indicated to carb controlled, texture per speech therapist recs. 2. When diet advanced monitor need for ONS if suboptimal PO intake to meet nutrition needs for wound healing. 3. Rec. bowel care due to LBM 02/02 4. wt per rx Addendum: 02/09/19 at [address] Amended: Links added. Addendum: 02/10/19 at [address] RD agree with engineering intern note
--- NOTE | 2019-02-09 15:30 | NUR ---
Patient in room [facility]. I have received report from Marti OSBORN and had the opportunity to ask questions and assume patient care.
--- NOTE | 2019-02-09 16:07 | NUR ---
Gave report to ANURAG Zeng. Pt transferred to surgical unit without complications. All belongings in hand
--- NOTE | 2019-02-09 16:10 | NUR ---
patient arrived to the floor at this time and was taken to her room and made familiar. Patient was given the call light and all of her belongings were brought to the floor at this time. Patient alert and oriented x4. Patient vital signs taken at this time. Patient family coming to the floor from the waiting room. Patient doing well at this time and needs nothing at this time.
--- NOTE | 2019-02-09 18:30 | NUR ---
Problems reprioritized. Patient report given, questions answered & plan of care reviewed with Helen Payne RN.
[2019-02-09] MEDS: magnesium hydroxide 30ml (MOM) UD suspension PO SCH (19:41)
[2019-02-09] MEDS: insulin glargine (Lantus) pen - multi-dose SQ SCH (22:43)
--- NOTE | 2019-02-09 23:12 | NUR ---
Patient requested a bedpan to have a bowel movement. When rolling her, the edge of the wound vac became displaced. Attempted to reinforce the dressing, but liquid stool had gotten underneath the wound vac dressing and had saturated the sponge. Placed call to Jose J Kate. gave order to remove dileep securing foam to the wound, take down vac, and replace with a wet to dry dressing. Patient tolerated wet to dry dressing well. Then placed call to Korye Martinez STATION WORKER to obtain and order for rectal tube for fecal containment to keep stool out of the wound. STATION WORKER agrees. Will continue to monitor wound and dressing status.
[2019-02-10] VITALS (15 sets, daily range): BP systolic 86–134; BP diastolic 49–89
--- NOTE | 2019-02-10 00:59 | NUR ---
Rectal tube leaking, dressing slightly soiled on one side, changed dressing.
[2019-02-10] MEDS: HYDROmorphone/NS 1 mg/ml CADD 50 ML IV SCH ×12 (01:00→23:00)
[2019-02-10] MEDS: clindamycin 600mg/D5W 50ml 50 ML IV SCH ×2 (01:01→07:52)
[2019-02-10 04:11] LABS: BASOPHILS % (AUTO) 0.2 % (0-1); EOSINOPHILS # (AUTO) 0.2 X10'3 (0-0.9); HEMATOCRIT 32.4 % (35.0-45.0); HEMOGLOBIN 11.2 g/dl (12.0-16.0); LYMPHOCYTES # (AUTO) 3.2 X10'3 (1.1-4.8); LYMPHOCYTES % (AUTO) 29.5 % (21-51); MEAN CORPUSCULAR HGB CONC 34.6 g/dL (33.0-36.5); MEAN CORPUSCULAR VOLUME 92.6 FL (78-98); MEAN PLATELET VOLUME 7.7 FL (7.4-10.4); MONOCYTES # (AUTO) 0.8 X10'3 (0-0.9); MONOCYTES % (AUTO) 7.4 % (2-12); NEUTROPHILS # (AUTO) 6.6 X10'3 (1.8-7.7); NEUTROPHILS % (AUTO) 60.9 % (42-75); PLATELET COUNT 250 X10'3 (140-440); RED CELL DISTRIBUTION WIDTH 12.8 % (11.5-14.5); WHITE BLOOD COUNT 10.9 X10'3 (4.5-11.0)
[2019-02-10 04:18] LABS: ALANINE AMINOTRANSFERASE 16 U/L (12-78); ALBUMIN 1.6 G/DL (3.4-5.0); ALBUMIN/GLOBULIN RATIO 0.3 (1.1-1.5); ALKALINE PHOSPHATASE 90 IU/L (46-116); ANION GAP 6 (8-16); ASPARTATE AMINO TRANSFERASE 32 U/L (10-37); BILIRUBIN,TOTAL 0.5 MG/DL (0.1-1.0); BLOOD UREA NITROGEN 11 MG/DL (7-18); BUN/CREATININE RATIO 11.3 (6.6-38.0); CHLORIDE 105 MMOL/L (99-107); CREATININE 0.97 MG/DL (0.40-0.90); GLUCOSE 107 MG/DL (70-104); MAGNESIUM 1.3 MG/DL (1.5-2.4); PHOSPHORUS 4.3 MG/DL (2.3-4.5); POTASSIUM 3.7 MMOL/L (3.5-5.1); SODIUM 144 MMOL/L (135-145); TOTAL CARBON DIOXIDE 33.5 MMOL/L (24-32); TOTAL PROTEIN 6.2 G/DL (6.4-8.2); eGFR 61 ML/MIN
[2019-02-10] MEDS: magnesium hydroxide 30ml (MOM) UD suspension PO SCH (07:53)
[2019-02-10] MEDS: pantoprazole 40mg Tablet.DR PO SCH (07:58)
[2019-02-10] MEDS: lactobacillus rhamnosus 10,000 MMU CELLS/CAPSULE PO SCH ×2 (07:58→22:12)
[2019-02-10] MEDS: piperacillin/tazo 3.375gm/50ml 50 ML IV SCH ×2 (08:14→16:45)
[2019-02-10] MEDS ORDERED: magnesium hydroxide 30ml (MOM) UD suspension PO PRN (12:40)
[2019-02-10] MEDS: insulin Lispro (HumaLOG) vial - multi-dose SQ SCH (14:19)
[2019-02-10 15:28] LABS: PRE OP INR 1.1 INR; PRE OP PROTIME 11.5 SECONDS (9.0-12.0)
[2019-02-10] MEDS ORDERED: ondansetron/PF 4mg/2ml inj ONE (16:42)
[2019-02-10] MEDS ORDERED: dexamethasone sod phosphate 4mg/ml inj. ONE (16:42)
[2019-02-10] MEDS ORDERED: LIDOcaine 2% (20mg/ml) 5ml vial ONE (16:42)
[2019-02-10] MEDS ORDERED: neostigmine methylsulfate 1 MG/ML 10ml vial ONE (16:42)
[2019-02-10] MEDS ORDERED: propofol inj 20 ML IV ONE (16:42)
[2019-02-10] MEDS ORDERED: rocuronium 10mg/ml inj IV ONE (16:42)
[2019-02-10] MEDS ORDERED: glycopyrrolate 0.2mg/ml inj ONE (16:42)
[2019-02-10] MEDS ORDERED: labetalol 20mg/4ml (5mg/ml) syringe IV PRN (16:50)
[2019-02-10] MEDS ORDERED: hydrALAZINE 20mg/ml inj. IV PRN (16:50)
[2019-02-10] MEDS ORDERED: ringers solution, lacted 1,000 ML IV SCH (16:50)
[2019-02-10] MEDS ORDERED: morphine 4 MG/ML inj SYRINge IV PRN ×2 (16:50)
[2019-02-10] MEDS ORDERED: ondansetron/PF 4mg/2ml inj IV PRN (16:50)
[2019-02-10] MEDS ORDERED: fentaNYL/PF 50MCG/1 ML 2ML syringe IV PRN ×2 (16:50)
--- NOTE | 2019-02-10 16:59 | NUR ---
Pt transported to OR. Belongings left in room. Report called to recovery.
[2019-02-10] MEDS ORDERED: clindamycin phosphate 150mg/ml inj. ONE (17:07)
[2019-02-10] MEDS ORDERED: gentamicin 40 MG/1 ML inj ONE (17:07)
[2019-02-10] MEDS ORDERED: sevoflurane 250ml liquid IH ONE (17:34)
[2019-02-10] MEDS ORDERED: succinylcholine 20mg/ml inj IV ONE (17:43)
[2019-02-10] MEDS ORDERED: albumin (Human) 5% 250ml 500 ML IV ONE (17:49)
[2019-02-10] MEDS ORDERED: fentaNYL/PF 50MCG/1 ML 2ML syringe ONE (17:49)
[2019-02-10] MEDS ORDERED: albumin (Human) 5% 250ml 250 ML IV ONE (17:51)
--- NOTE | 2019-02-10 18:29 | NUR ---
Problems reprioritized. Patient report given, questions answered & plan of care reviewed with Trena RN.
[2019-02-10] MEDS ORDERED: sugammadex 200mg/2ml injection IV ONE (19:13)
[2019-02-10] MEDS ORDERED: HYDROmorphone 1 mg/ml syringe IV PRN (19:45)
--- NOTE | 2019-02-10 19:47 | NUR ---
Received from OR via SURGICAL BED , accompanied by Anesthesiologist TOM and report given by Anesthesiolgist. PATIENT WITH CLEAN ABDOMINAL DRESSING AND FRESH COLOSTOMY SITE TO LEFT SIDE OF ABDOMEN. MACKAY CATHETER PRESENT WITH CLEAR YELLOW URINE IN ATRIUM. RECTAL TUBE REMOVED UPON ARRIVAL BY STAFF. PATIENT IWTH TAXICAB DRIVER RECONNECTED. PATIENT DENIES PAIN AT THIS TIME. PATIENT WITH 20G PIV IN LEFT UE RUNNING LR AT 100. VSS AT THIS TIME. Addendum: 02/10/19 at 1956 by Flo Rodriguez RN, RN Amended: Links added.
--- NOTE | 2019-02-10 20:25 | NUR ---
report received from recovery room nurseMark; family at bedside
--- NOTE | 2019-02-10 20:27 | NUR ---
ALL CRITERIA FOR TRANSFER TO THE FLOOR HAS BEEN ACHIEVED. VSS. BED LOW, CALL LIGHT AND VS. SET IN PLACE. RN PRESENT TO ACCEPT CARE. PATIENT RESTING COMFORTABLY IN BED. BELONGINGS SENT WITH PATIENT. DRESSINGS CDI. RN PRESENT TO ACCEPT PATIENT. FAMILY AT BEDSIDE. CONTINUOUS LOFT OPERATOR USED ENCOURAGED FOR PAIN. RN AWARE AND ASSUMING CARE OF PATIENT. Addendum: 02/10/19 at 2029 by Flo Meadows - ANURAG RN Amended: Links added.
[2019-02-10] MEDS: heparin, porcine 5000 units/ml vial SQ SCH (22:13)
[2019-02-10] MEDS: insulin glargine (Lantus) pen - multi-dose SQ SCH (22:38)
[2019-02-11] MEDS: normal saline 1000ml 1,000 ML IV SCH ×2 (00:11→12:55)
[2019-02-11 00:15] VITALS: BP 119/79
[2019-02-11] MEDS: piperacillin/tazo 3.375gm/50ml 50 ML IV SCH ×4 (00:15→23:30)
[2019-02-11 00:30] VITALS: BP 122/80
[2019-02-11] MEDS: HYDROmorphone/NS 1 mg/ml CADD 50 ML IV SCH ×12 (01:00→23:00)
[2019-02-11 04:00] VITALS: BP 121/71
[2019-02-11 04:56] LABS: BASOPHILS % (AUTO) 0.2 % (0-1); EOSINOPHILS # (AUTO) 0.1 X10'3 (0-0.9); EOSINOPHILS % (AUTO) 0.3 % (0-6); HEMATOCRIT 34.2 % (35.0-45.0); HEMOGLOBIN 11.7 g/dl (12.0-16.0); LYMPHOCYTES # (AUTO) 2.5 X10'3 (1.1-4.8); LYMPHOCYTES % (AUTO) 13.1 % (21-51); MEAN CORPUSCULAR HEMOGLOBIN 31.9 PG (27.0-31.0); MEAN CORPUSCULAR HGB CONC 34.3 g/dL (33.0-36.5); MEAN CORPUSCULAR VOLUME 93.1 FL (78-98); MEAN PLATELET VOLUME 7.7 FL (7.4-10.4); MONOCYTES # (AUTO) 0.8 X10'3 (0-0.9); MONOCYTES % (AUTO) 4.2 % (2-12); NEUTROPHILS # (AUTO) 15.6 X10'3 (1.8-7.7); NEUTROPHILS % (AUTO) 82.2 % (42-75); PLATELET COUNT 276 X10'3 (140-440); RED BLOOD COUNT 3.68 X10'6 (4.20-5.60); RED CELL DISTRIBUTION WIDTH 13.1 % (11.5-14.5)
[2019-02-11 05:14] LABS: ALANINE AMINOTRANSFERASE 17 U/L (12-78); ALBUMIN 1.9 G/DL (3.4-5.0); ALBUMIN/GLOBULIN RATIO 0.4 (1.1-1.5); ALKALINE PHOSPHATASE 87 IU/L (46-116); ANION GAP 4 (8-16); ASPARTATE AMINO TRANSFERASE 23 U/L (10-37); BILIRUBIN,TOTAL 0.6 MG/DL (0.1-1.0); BLOOD UREA NITROGEN 8 MG/DL (7-18); BUN/CREATININE RATIO 8.3 (6.6-38.0); CALCIUM 7.8 MG/DL (8.5-10.1); CHLORIDE 106 MMOL/L (99-107); CREATININE 0.96 MG/DL (0.40-0.90); GLUCOSE 179 MG/DL (70-104); MAGNESIUM 1.6 MG/DL (1.5-2.4); SODIUM 142 MMOL/L (135-145); TOTAL CARBON DIOXIDE 31.7 MMOL/L (24-32); TOTAL PROTEIN 6.6 G/DL (6.4-8.2); eGFR 62 ML/MIN
--- NOTE | 2019-02-11 05:50 | NUR ---
checked q1hr; slept at intervals with resp even and unlabored; repositioned for comfort to side with 2 people to assist; (pt using pillow to abd for splinting); pt tolerated perineum drsg change (wet to dry); had scant amt of brown stool from wound when wound cleaned; reminded to do deep breathing exercises...
--- NOTE | 2019-02-11 06:30 | NUR ---
shift change report given to ANURAG Chapman
[2019-02-11 08:00] VITALS: BP 102/67
[2019-02-11] MEDS: pantoprazole 40mg Tablet.DR PO SCH (08:46)
[2019-02-11] MEDS: lactobacillus rhamnosus 10,000 MMU CELLS/CAPSULE PO SCH ×2 (08:47→19:19)
[2019-02-11] MEDS: heparin, porcine 5000 units/ml vial SQ SCH ×2 (08:47→19:20)
[2019-02-11] MEDS: insulin Lispro (HumaLOG) vial - multi-dose SQ SCH ×3 (09:27→19:22)
--- NOTE | 2019-02-11 16:34 | NUR ---
Reassessment: Patient s/p diverting colostomy 02/10 and diet has been advanced to CHO controlled. Pt documented with 100% PO intake at lunch yesterday, pending further documentation of PO intake. Pt seen at bedside reports low appetite and states she is drinking a lot of fluid. Pt with increased protein needs for wound healing/skin integrity. Pt agrees to Ensure High Protein TID, MD notified. [facility] be sent [email or web address] 02/10. Will continue to follow. Recommendations: 1. Continue carb controlled 2. Vanilla/strawberry Ensure High Protein TID; ONS to be sent pending MD verification in [facility] 3. Routine bowel care 4. wt per rx Addendum: 02/11/19 at [address] Amended: Links added.
[2019-02-11 18:00] VITALS: BP 111/79
[2019-02-11] MEDS ORDERED: lactose-reduced food (Ensure High Protein) 237ml bottle PO SCH (18:00)
--- NOTE | 2019-02-11 18:20 | NUR ---
Patient in room [facility] 354. I have received report from ANURAG Garcia and had the opportunity to ask questions and assume patient care.
[2019-02-11] MEDS: magnesium hydroxide 30ml (MOM) UD suspension PO SCH (19:19)
[2019-02-11] MEDS: insulin glargine (Lantus) pen - multi-dose SQ SCH (21:47)
[2019-02-12] VITALS: BP 114/79
[2019-02-12] MEDS: HYDROmorphone/NS 1 mg/ml CADD 50 ML IV SCH ×12 (01:00→23:00)
[2019-02-12 04:46] LABS: BASOPHILS % (AUTO) 0.2 % (0-1); EOSINOPHILS # (AUTO) 0.1 X10'3 (0-0.9); EOSINOPHILS % (AUTO) 0.7 % (0-6); HEMATOCRIT 32.7 % (35.0-45.0); HEMOGLOBIN 11.4 g/dl (12.0-16.0); LYMPHOCYTES # (AUTO) 1.9 X10'3 (1.1-4.8); LYMPHOCYTES % (AUTO) 10.1 % (21-51); MEAN CORPUSCULAR HEMOGLOBIN 32.1 PG (27.0-31.0); MEAN CORPUSCULAR HGB CONC 34.8 g/dL (33.0-36.5); MEAN CORPUSCULAR VOLUME 92.3 FL (78-98); MEAN PLATELET VOLUME 7.6 FL (7.4-10.4); MONOCYTES # (AUTO) 0.9 X10'3 (0-0.9); MONOCYTES % (AUTO) 4.7 % (2-12); NEUTROPHILS # (AUTO) 16.2 X10'3 (1.8-7.7); NEUTROPHILS % (AUTO) 84.3 % (42-75); PLATELET COUNT 230 X10'3 (140-440); RED BLOOD COUNT 3.54 X10'6 (4.20-5.60); RED CELL DISTRIBUTION WIDTH 12.8 % (11.5-14.5); WHITE BLOOD COUNT 19.2 X10'3 (4.5-11.0)
[2019-02-12 05:14] LABS: ALANINE AMINOTRANSFERASE 14 U/L (12-78); ALBUMIN 1.8 G/DL (3.4-5.0); ALBUMIN/GLOBULIN RATIO 0.4 (1.1-1.5); ALKALINE PHOSPHATASE 86 IU/L (46-116); ANION GAP 7 (8-16); ASPARTATE AMINO TRANSFERASE 16 U/L (10-37); BLOOD UREA NITROGEN 6 MG/DL (7-18); BUN/CREATININE RATIO 7.2 (6.6-38.0); CALCIUM 8.3 MG/DL (8.5-10.1); CHLORIDE 101 MMOL/L (99-107); CREATININE 0.83 MG/DL (0.40-0.90); GLUCOSE 178 MG/DL (70-104); MAGNESIUM 1.7 MG/DL (1.5-2.4); POTASSIUM 3.8 MMOL/L (3.5-5.1); SODIUM 135 MMOL/L (135-145); TOTAL CARBON DIOXIDE 27.5 MMOL/L (24-32); TOTAL PROTEIN 6.7 G/DL (6.4-8.2); eGFR 73 ML/MIN
--- NOTE | 2019-02-12 06:11 | NUR ---
Problems reprioritized. Patient report given, questions answered & plan of care reviewed with ANURAG Hernandez.
--- NOTE | 2019-02-12 06:44 | NUR ---
Patient in room [facility] 354. I have received report from javier uriarte and had the opportunity to ask questions and assume patient care.
[2019-02-12 08:00] VITALS: BP 127/84
[2019-02-12] MEDS: lactobacillus rhamnosus 10,000 MMU CELLS/CAPSULE PO SCH ×2 (08:35→20:47)
[2019-02-12] MEDS: magnesium hydroxide 30ml (MOM) UD suspension PO SCH ×2 (08:36→20:00)
[2019-02-12] MEDS: heparin, porcine 5000 units/ml vial SQ SCH ×2 (08:36→20:54)
[2019-02-12] MEDS: piperacillin/tazo 3.375gm/50ml 50 ML IV SCH ×2 (08:37→16:00)
[2019-02-12] MEDS: pantoprazole 40mg Tablet.DR PO SCH (08:38)
[2019-02-12] MEDS: insulin Lispro (HumaLOG) vial - multi-dose SQ SCH ×3 (09:41→18:44)
[2019-02-12 11:00] VITALS: BP 136/83
[2019-02-12] MEDS: ondansetron/PF 4mg/2ml inj IV PRN ×2 (13:42→20:49)
[2019-02-12 18:00] VITALS: BP 119/76
[2019-02-12 18:04] VITALS: BP 136/83
--- NOTE | 2019-02-12 18:30 | NUR ---
Patient in room [facility] 354. I have received report from DANA OSBORN and had the opportunity to ask questions and assume patient care.
[2019-02-12] MEDS: metoclopramide 5 mg/ml inj IV SCH (20:44)
[2019-02-12] MEDS: diatr meglu/diatrizoate 30ml oral sol.-(3 dose) bottle PO SCH (20:51)
[2019-02-12] MEDS: insulin glargine (Lantus) pen - multi-dose SQ SCH (21:46)
[2019-02-13] VITALS: BP 132/86
[2019-02-13] MEDS: piperacillin/tazo 3.375gm/50ml 50 ML IV SCH ×3 (00:06→16:16)
[2019-02-13] MEDS: HYDROmorphone/NS 1 mg/ml CADD 50 ML IV SCH ×12 (01:00→23:00)
[2019-02-13] MEDS: metoclopramide 5 mg/ml inj IV SCH ×4 (02:00→19:54)
[2019-02-13 04:47] LABS: BASOPHILS % (AUTO) 0.1 % (0-1); EOSINOPHILS % (AUTO) 0.2 % (0-6); HEMOGLOBIN 11.4 g/dl (12.0-16.0); LYMPHOCYTES # (AUTO) 2.6 X10'3 (1.1-4.8); LYMPHOCYTES % (AUTO) 12.8 % (21-51); MEAN CORPUSCULAR HEMOGLOBIN 31.9 PG (27.0-31.0); MEAN CORPUSCULAR HGB CONC 34.5 g/dL (33.0-36.5); MEAN CORPUSCULAR VOLUME 92.5 FL (78-98); MEAN PLATELET VOLUME 8.2 FL (7.4-10.4); MONOCYTES # (AUTO) 0.9 X10'3 (0-0.9); MONOCYTES % (AUTO) 4.5 % (2-12); NEUTROPHILS # (AUTO) 16.5 X10'3 (1.8-7.7); NEUTROPHILS % (AUTO) 82.4 % (42-75); PLATELET COUNT 266 X10'3 (140-440); RED BLOOD COUNT 3.57 X10'6 (4.20-5.60); WHITE BLOOD COUNT 20.1 X10'3 (4.5-11.0)
[2019-02-13 06:08] LABS: ALANINE AMINOTRANSFERASE 12 U/L (12-78); ALBUMIN 1.8 G/DL (3.4-5.0); ALBUMIN/GLOBULIN RATIO 0.4 (1.1-1.5); ALKALINE PHOSPHATASE 91 IU/L (46-116); ANION GAP 9 (8-16); ASPARTATE AMINO TRANSFERASE 17 U/L (10-37); BILIRUBIN,TOTAL 0.7 MG/DL (0.1-1.0); BLOOD UREA NITROGEN 10 MG/DL (7-18); BUN/CREATININE RATIO 12.3 (6.6-38.0); CALCIUM 8.7 MG/DL (8.5-10.1); CHLORIDE 98 MMOL/L (99-107); CREATININE 0.81 MG/DL (0.40-0.90); GLUCOSE 173 MG/DL (70-104); MAGNESIUM 1.9 MG/DL (1.5-2.4); PHOSPHORUS 2.1 MG/DL (2.3-4.5); POTASSIUM 3.4 MMOL/L (3.5-5.1); SODIUM 133 MMOL/L (135-145); TOTAL CARBON DIOXIDE 25.8 MMOL/L (24-32); TOTAL PROTEIN 6.6 G/DL (6.4-8.2); eGFR 75 ML/MIN
--- NOTE | 2019-02-13 06:30 | NUR ---
Problems reprioritized. Patient report given, questions answered & plan of care reviewed with POPEYE OSBORN AND WILL OSBORN.
--- NOTE | 2019-02-13 07:02 | NUR ---
Patient in room [facility] 354. I have received report from Emma OSBORN and had the opportunity to ask questions and assume patient care.
[2019-02-13] MEDS: diatr meglu/diatrizoate 30ml oral sol.-(3 dose) bottle PO SCH ×2 (07:39→11:15)
[2019-02-13 08:00] VITALS: BP 128/78
[2019-02-13] MEDS: methylnaltrexone br 12mg/0.6ml inj***SubQ only SQ SCH (08:00)
[2019-02-13] MEDS: magnesium hydroxide 30ml (MOM) UD suspension PO SCH ×2 (08:00→20:00)
[2019-02-13] MEDS: pantoprazole 40mg Tablet.DR PO SCH (08:02)
[2019-02-13] MEDS: heparin, porcine 5000 units/ml vial SQ SCH ×2 (08:03→19:57)
[2019-02-13] MEDS: potassium Cl 20 mEq SR tablet PO PRN ×3 (08:17→17:49)
[2019-02-13] MEDS: lactobacillus rhamnosus 10,000 MMU CELLS/CAPSULE PO SCH ×2 (08:21→20:01)
[2019-02-13] MEDS: insulin Lispro (HumaLOG) vial - multi-dose SQ SCH ×3 (09:25→18:29)
[2019-02-13] MEDS ORDERED: iohexol 300mg/ml 100ml inj. ONE (11:00)
[2019-02-13] MEDS: normal saline 1000ml 1,000 ML IV SCH (11:26)
--- NOTE | 2019-02-13 11:36 | NUR ---
patient out for Abd/pelvic CT scan at 1133
[2019-02-13 12:00] VITALS: BP 121/74
--- NOTE | 2019-02-13 18:31 | NUR ---
Problems reprioritized. Patient report given, questions answered & plan of care reviewed with Emma OSBORN.
--- NOTE | 2019-02-13 18:35 | NUR ---
Patient in room [facility] 354. I have received report from POPEYE OSBORN AND WILL RN and had the opportunity to ask questions and assume patient care.
[2019-02-13 20:23] VITALS: BP 133/79
[2019-02-13] MEDS: insulin glargine (Lantus) pen - multi-dose SQ SCH (22:10)
[2019-02-14] VITALS: BP 123/83
[2019-02-14] MEDS: piperacillin/tazo 3.375gm/50ml 50 ML IV SCH ×3 (00:53→16:12)
[2019-02-14] MEDS: HYDROmorphone/NS 1 mg/ml CADD 50 ML IV SCH ×12 (01:00→23:00)
[2019-02-14] MEDS: metoclopramide 5 mg/ml inj IV SCH ×4 (01:03→19:13)
[2019-02-14 05:47] LABS: BASOPHILS % (AUTO) 0.2 % (0-1); EOSINOPHILS # (AUTO) 0.2 X10'3 (0-0.9); EOSINOPHILS % (AUTO) 1.4 % (0-6); HEMATOCRIT 31.7 % (35.0-45.0); LYMPHOCYTES # (AUTO) 2.8 X10'3 (1.1-4.8); LYMPHOCYTES % (AUTO) 18.9 % (21-51); MEAN CORPUSCULAR HGB CONC 34.7 g/dL (33.0-36.5); MEAN CORPUSCULAR VOLUME 92.2 FL (78-98); MEAN PLATELET VOLUME 8.3 FL (7.4-10.4); MONOCYTES # (AUTO) 1.1 X10'3 (0-0.9); MONOCYTES % (AUTO) 7.2 % (2-12); NEUTROPHILS # (AUTO) 10.8 X10'3 (1.8-7.7); NEUTROPHILS % (AUTO) 72.3 % (42-75); PLATELET COUNT 272 X10'3 (140-440); RED BLOOD COUNT 3.44 X10'6 (4.20-5.60); RED CELL DISTRIBUTION WIDTH 13.2 % (11.5-14.5)
[2019-02-14 06:18] LABS: ALANINE AMINOTRANSFERASE 11 U/L (12-78); ALBUMIN 1.7 G/DL (3.4-5.0); ALBUMIN/GLOBULIN RATIO 0.4 (1.1-1.5); ALKALINE PHOSPHATASE 87 IU/L (46-116); ANION GAP 7 (8-16); ASPARTATE AMINO TRANSFERASE 15 U/L (10-37); BILIRUBIN,TOTAL 0.6 MG/DL (0.1-1.0); BLOOD UREA NITROGEN 9 MG/DL (7-18); BUN/CREATININE RATIO 11.5 (6.6-38.0); CHLORIDE 98 MMOL/L (99-107); CREATININE 0.78 MG/DL (0.40-0.90); GLUCOSE 143 MG/DL (70-104); MAGNESIUM 1.8 MG/DL (1.5-2.4); PHOSPHORUS 1.9 MG/DL (2.3-4.5); POTASSIUM 3.9 MMOL/L (3.5-5.1); SODIUM 132 MMOL/L (135-145); TOTAL CARBON DIOXIDE 26.7 MMOL/L (24-32); TOTAL PROTEIN 6.3 G/DL (6.4-8.2); eGFR 78 ML/MIN
--- NOTE | 2019-02-14 06:30 | NUR ---
Patient in room [facility] 355. I have received report from Emma OSBORN and had the opportunity to ask questions and assume patient care.
--- NOTE | 2019-02-14 06:30 | NUR ---
Problems reprioritized. Patient report given, questions answered & plan of care reviewed with AARON OSBORN.
[2019-02-14 07:20] VITALS: BP 115/82
[2019-02-14] MEDS ORDERED: NORMAL SALINE IV ONE (07:30)
[2019-02-14] MEDS ORDERED: SINCALIDE IV ONE (07:30)
--- NOTE | 2019-02-14 07:31 | NUR ---
PAGER ID: [phone] MESSAGE: [id number] Good Morning! I put in an order for sinkarma for the EF with the MALIAA. Lili [phone]
--- NOTE | 2019-02-14 07:38 | NUR ---
PT TAKEN OFF FLOOR FOR hida
[2019-02-14] MEDS ORDERED: methylnaltrexone br 12mg/0.6ml inj***SubQ only SQ SCH (08:00)
[2019-02-14] MEDS: heparin, porcine 5000 units/ml vial SQ SCH ×2 (08:00→19:14)
[2019-02-14] MEDS: magnesium hydroxide 30ml (MOM) UD suspension PO SCH ×2 (08:00→19:29)
--- NOTE | 2019-02-14 09:12 | NUR ---
PT RETURNED TO FLOOR, MOVED TO 55a
[2019-02-14] MEDS: lactobacillus rhamnosus 10,000 MMU CELLS/CAPSULE PO SCH ×2 (09:21→19:13)
[2019-02-14] MEDS: pantoprazole 40mg Tablet.DR PO SCH (09:21)
[2019-02-14] MEDS: insulin Lispro (HumaLOG) vial - multi-dose SQ SCH ×2 (09:27→19:04)
--- NOTE | 2019-02-14 10:14 | NUR ---
HEPARIN HELD FOR POSSIBLE PROCEDURE
--- NOTE | 2019-02-14 12:52 | NUR ---
pt taken off unit for procedure
[2019-02-14 14:40] VITALS: BP 115/82
--- NOTE | 2019-02-14 15:16 | NUR ---
pt requested dressing change after dinner
--- NOTE | 2019-02-14 15:25 | NUR ---
Patient refusing wound dressing until after she eats dinner. Worked with PT today. HIDA scan completed. Patient more tired today.
--- NOTE | 2019-02-14 15:50 | NUR ---
Reassessment: Pt advanced to full liquids from clears post-op. Ensure high protein TIDWM added to meals by RN today since was to receive previously on carb controlled diet; MD aware. New colostomy 1674-2024ml higher output but also on liquids only. Will monitor for output as diet advances post-op given new colostomy. Pt will need colostomy diet ed prior to d/c. Will continue to monitor. Recommendations: 1. advance to continue carb controlled per MD 2. Vanilla/strawberry Ensure High Protein TID; ONS to be sent pending verification in [facility] 3. Routine bowel care 4. wt per rx Addendum: 02/14/19 at [address] Amended: Links added.
[2019-02-14 18:00] VITALS: BP 111/74
[2019-02-14] MEDS: lactose-reduced food (Ensure High Protein) 237ml bottle PO SCH (18:40)
[2019-02-14] MEDS: Neutra Phos packet PO SCH (20:45)
[2019-02-14] MEDS: insulin glargine (Lantus) pen - multi-dose SQ SCH (20:49)
--- NOTE | 2019-02-14 23:21 | NUR ---
Dressing change to right buttock/tootie area completed.
[2019-02-15] VITALS (7 sets, daily range): BP systolic 104–130; BP diastolic 69–87
[2019-02-15] MEDS: piperacillin/tazo 3.375gm/50ml 50 ML IV SCH ×2 (00:07→08:54)
[2019-02-15] MEDS: HYDROmorphone/NS 1 mg/ml CADD 50 ML IV SCH ×6 (01:00→11:00)
[2019-02-15] MEDS: metoclopramide 5 mg/ml inj IV SCH ×4 (02:45→19:58)
[2019-02-15 05:15] LABS: BASOPHILS % (AUTO) 0.2 % (0-1); EOSINOPHILS # (AUTO) 0.1 X10'3 (0-0.9); EOSINOPHILS % (AUTO) 0.5 % (0-6); HEMATOCRIT 31.6 % (35.0-45.0); HEMOGLOBIN 10.9 g/dl (12.0-16.0); LYMPHOCYTES # (AUTO) 2.8 X10'3 (1.1-4.8); LYMPHOCYTES % (AUTO) 11.5 % (21-51); MEAN CORPUSCULAR HEMOGLOBIN 31.8 PG (27.0-31.0); MEAN CORPUSCULAR HGB CONC 34.5 g/dL (33.0-36.5); MEAN CORPUSCULAR VOLUME 92.2 FL (78-98); MEAN PLATELET VOLUME 7.9 FL (7.4-10.4); MONOCYTES # (AUTO) 1.5 X10'3 (0-0.9); MONOCYTES % (AUTO) 6.1 % (2-12); NEUTROPHILS # (AUTO) 19.9 X10'3 (1.8-7.7); NEUTROPHILS % (AUTO) 81.7 % (42-75); PLATELET COUNT 245 X10'3 (140-440); RED BLOOD COUNT 3.43 X10'6 (4.20-5.60); RED CELL DISTRIBUTION WIDTH 13.2 % (11.5-14.5); WHITE BLOOD COUNT 24.3 X10'3 (4.5-11.0)
[2019-02-15 05:44] LABS: ALANINE AMINOTRANSFERASE 10 U/L (12-78); ALBUMIN 1.7 G/DL (3.4-5.0); ALKALINE PHOSPHATASE 93 IU/L (46-116); ANION GAP 7 (8-16); ASPARTATE AMINO TRANSFERASE 18 U/L (10-37); BILIRUBIN,TOTAL 0.9 MG/DL (0.1-1.0); BLOOD UREA NITROGEN 5 MG/DL (7-18); BUN/CREATININE RATIO 6.2 (6.6-38.0); CHLORIDE 93 MMOL/L (99-107); CREATININE 0.81 MG/DL (0.40-0.90); GLUCOSE 179 MG/DL (70-104); MAGNESIUM 1.6 MG/DL (1.5-2.4); PHOSPHORUS 2.3 MG/DL (2.3-4.5); POTASSIUM 3.8 MMOL/L (3.5-5.1); SODIUM 125 MMOL/L (135-145); TOTAL CARBON DIOXIDE 24.8 MMOL/L (24-32); eGFR 75 ML/MIN
[2019-02-15 05:46] LABS: PLATELET ESTIMATE NORMAL; TOTAL CELLS COUNTED 100
[2019-02-15 06:01] LABS: ALBUMIN/GLOBULIN RATIO 0.4 (1.1-1.5); TOTAL PROTEIN 6.5 G/DL (6.4-8.2)
--- NOTE | 2019-02-15 06:16 | NUR ---
Problems reprioritized. Patient report given, questions answered & plan of care reviewed with ANURAG Dill.
--- NOTE | 2019-02-15 07:43 | NUR ---
Gave report to Sana OSBORN.
[2019-02-15] MEDS: lactose-reduced food (Ensure High Protein) 237ml bottle PO SCH ×3 (08:00→18:05)
[2019-02-15] MEDS: heparin, porcine 5000 units/ml vial SQ SCH ×2 (09:06→19:59)
[2019-02-15] MEDS: methylnaltrexone br 12mg/0.6ml inj***SubQ only SQ SCH (09:08)
[2019-02-15] MEDS: lactobacillus rhamnosus 10,000 MMU CELLS/CAPSULE PO SCH ×2 (09:09→19:58)
[2019-02-15] MEDS: magnesium hydroxide 30ml (MOM) UD suspension PO SCH ×2 (09:09→20:00)
[2019-02-15] MEDS: Neutra Phos packet PO SCH ×3 (09:10→19:58)
[2019-02-15] MEDS: pantoprazole 40mg Tablet.DR PO SCH (09:17)
[2019-02-15] MEDS: normal saline 1000ml 1,000 ML IV SCH (11:49)
[2019-02-15] MEDS ORDERED: CADD PCA waste documentation MC SCH (12:15)
[2019-02-15] MEDS: insulin Lispro (HumaLOG) vial - multi-dose SQ SCH ×2 (12:52→18:51)
[2019-02-15] MEDS: cefepime 2g/NS 100ml ADVANTAGE 100 ML IV SCH ×2 (14:16→19:58)
[2019-02-15 15:19] LABS: PARTIAL THROMBOPLASTIN TIME 30 SECONDS (22-32)
[2019-02-15] MEDS: metroNIDAZOLE-Flagyl 500mg/NS 100 ML IV SCH ×2 (16:38→23:40)
--- NOTE | 2019-02-15 18:08 | NUR ---
Alix OSBORN in OR called to say surgery cancelled for tonight.patient informed.
--- NOTE | 2019-02-15 18:20 | NUR ---
Problems reprioritized. Patient report given, questions answered & plan of care reviewed with Helen Rodriges RN.
[2019-02-15] MEDS: diatr meglu/diatrizoate 30ml oral sol.-(3 dose) bottle PO SCH ×2 (21:00→21:13)
[2019-02-15] MEDS: insulin glargine (Lantus) pen - multi-dose SQ SCH (21:09)
[2019-02-16] VITALS (15 sets, daily range): BP systolic 98–134; BP diastolic 59–93
[2019-02-16] MEDS: normal saline 1000ml 1,000 ML IV SCH ×2 (02:09→15:35)
[2019-02-16] MEDS: metoclopramide 5 mg/ml inj IV SCH ×4 (02:10→20:00)
--- NOTE | 2019-02-16 05:23 | NUR ---
Ostomy bag changed, leaking. Bed bath for surgery completed.
[2019-02-16 05:30] LABS: BASOPHILS % (AUTO) 0.2 % (0-1); EOSINOPHILS # (AUTO) 0.2 X10'3 (0-0.9); HEMATOCRIT 28.4 % (35.0-45.0); HEMOGLOBIN 9.9 g/dl (12.0-16.0); LYMPHOCYTES # (AUTO) 2.9 X10'3 (1.1-4.8); LYMPHOCYTES % (AUTO) 15.8 % (21-51); MEAN CORPUSCULAR HEMOGLOBIN 32.1 PG (27.0-31.0); MEAN CORPUSCULAR HGB CONC 34.8 g/dL (33.0-36.5); MEAN CORPUSCULAR VOLUME 92.4 FL (78-98); MEAN PLATELET VOLUME 8.2 FL (7.4-10.4); MONOCYTES % (AUTO) 5.6 % (2-12); NEUTROPHILS # (AUTO) 14.3 X10'3 (1.8-7.7); NEUTROPHILS % (AUTO) 77.4 % (42-75); PLATELET COUNT 194 X10'3 (140-440); RED BLOOD COUNT 3.07 X10'6 (4.20-5.60); RED CELL DISTRIBUTION WIDTH 13.7 % (11.5-14.5); WHITE BLOOD COUNT 18.5 X10'3 (4.5-11.0)
[2019-02-16 05:34] LABS: PARTIAL THROMBOPLASTIN TIME 31 SECONDS (22-32)
--- NOTE | 2019-02-16 06:18 | NUR ---
Problems reprioritized. Patient report given, questions answered & plan of care reviewed with ANURAG Elkins.
--- NOTE | 2019-02-16 06:20 | NUR ---
Patient in room [facility] 355. I have received report from ANURAG PADILLA and had the opportunity to ask questions and assume patient care.
[2019-02-16 06:22] LABS: ALANINE AMINOTRANSFERASE 8 U/L (12-78); ALBUMIN 1.5 G/DL (3.4-5.0); ALBUMIN/GLOBULIN RATIO 0.3 (1.1-1.5); ALKALINE PHOSPHATASE 90 IU/L (46-116); ANION GAP 10 (8-16); ASPARTATE AMINO TRANSFERASE 10 U/L (10-37); BILIRUBIN,TOTAL 0.6 MG/DL (0.1-1.0); BLOOD UREA NITROGEN 4 MG/DL (7-18); BUN/CREATININE RATIO 5.8 (6.6-38.0); CALCIUM 7.7 MG/DL (8.5-10.1); CHLORIDE 99 MMOL/L (99-107); CREATININE 0.69 MG/DL (0.40-0.90); GLUCOSE 152 MG/DL (70-104); MAGNESIUM 1.4 MG/DL (1.5-2.4); PHOSPHORUS 2.7 MG/DL (2.3-4.5); POTASSIUM 3.5 MMOL/L (3.5-5.1); SODIUM 133 MMOL/L (135-145); TOTAL PROTEIN 6.5 G/DL (6.4-8.2); eGFR 90 ML/MIN
[2019-02-16] MEDS: cefepime 2g/NS 100ml ADVANTAGE 100 ML IV SCH ×2 (07:05→22:36)
[2019-02-16] MEDS: magnesium hydroxide 30ml (MOM) UD suspension PO SCH ×2 (07:10→20:00)
[2019-02-16] MEDS: lactose-reduced food (Ensure High Protein) 237ml bottle PO SCH ×3 (07:10→18:00)
[2019-02-16] MEDS: pantoprazole 40mg Tablet.DR PO SCH (07:10)
[2019-02-16] MEDS: Neutra Phos packet PO SCH ×2 (07:10→13:00)
[2019-02-16] MEDS: lactobacillus rhamnosus 10,000 MMU CELLS/CAPSULE PO SCH ×2 (07:10→20:00)
[2019-02-16] MEDS: heparin, porcine 5000 units/ml vial SQ SCH ×2 (07:11→20:00)
[2019-02-16] MEDS: insulin Lispro (HumaLOG) vial - multi-dose SQ SCH (07:14)
[2019-02-16] MEDS: metroNIDAZOLE-Flagyl 500mg/NS 100 ML IV SCH ×2 (08:29→16:00)
--- NOTE | 2019-02-16 10:37 | NUR ---
Reassessment: Pt s/p CT which showed colicystitis and cholelithiasis per MD notes. Pt now s/p colostomy revision, open geri, and perineal wound debridement today. Diet order remains NPO for OR at this time. Pt previously on full liquid diet not eating very well however with 100% PO intake of ONS. LBM 02/15. Will continue to follow. Recommendations: 1. advance to continue carb controlled as medically indicated 2. Resume vanilla/strawberry Ensure High Protein TID with diet advancement 3. Routine bowel care 4. wt per rx Addendum: 02/16/19 at [address] Amended: Links added.
[2019-02-16] MEDS: magnesium 2GM in 50ml NS 50 ML IV PRN (13:18)
--- NOTE | 2019-02-16 13:38 | NUR ---
REPORT CALLED TO NILES GROVES RN.
--- NOTE | 2019-02-16 15:41 | NUR ---
Patient down to OR.
[2019-02-16] MEDS ORDERED: clindamycin phosphate 150mg/ml inj. ONE (16:04)
[2019-02-16] MEDS ORDERED: meperidine/PF 25mg/ml syringe IV PRN ×3 (16:05)
[2019-02-16] MEDS ORDERED: ondansetron/PF 4mg/2ml inj IV PRN ×2 (16:05→18:00)
[2019-02-16] MEDS ORDERED: proCHLORperazine 10 MG/2 ml inj IV PRN (16:05)
[2019-02-16] MEDS ORDERED: morphine 4 MG/ML inj SYRINge IV PRN ×4 (16:05→18:00)
[2019-02-16] MEDS ORDERED: ringers solution, lacted 1,000 ML IV SCH ×2 (16:05→17:59)
[2019-02-16] MEDS ORDERED: gentamicin 40 MG/1 ML inj ONE (16:08)
[2019-02-16] MEDS ORDERED: fentaNYL/PF 50MCG/1 ML 2ML syringe ONE ×3 (17:10→20:25)
[2019-02-16] MEDS ORDERED: rocuronium 10mg/ml inj IV ONE (17:10)
[2019-02-16] MEDS ORDERED: ondansetron/PF 4mg/2ml inj ONE ×2 (17:10→17:25)
[2019-02-16] MEDS ORDERED: sevoflurane 250ml liquid IH ONE (17:10)
[2019-02-16] MEDS ORDERED: LIDOcaine 2% (20mg/ml) 5ml vial ONE (17:10)
[2019-02-16] MEDS ORDERED: propofol inj 20 ML IV ONE (17:10)
[2019-02-16] MEDS ORDERED: midazolam 2 mg/2 ml injection ONE (17:10)
[2019-02-16] MEDS ORDERED: ceFOXitin 2 GM ADDVANTGE BAG 100 ML IV ONE (17:41)
[2019-02-16] MEDS ORDERED: fentaNYL/PF 50MCG/1 ML 2ML syringe IV PRN ×2 (18:00)
[2019-02-16] MEDS ORDERED: hydrALAZINE 20mg/ml inj. IV PRN (18:00)
[2019-02-16] MEDS ORDERED: labetalol 20mg/4ml (5mg/ml) syringe IV PRN (18:00)
--- NOTE | 2019-02-16 18:23 | NUR ---
Problems reprioritized. Patient report given, questions answered & plan of care reviewed with ANURAG Cervantes.
[2019-02-16] MEDS ORDERED: neostigmine methylsulfate 1 MG/ML 10ml vial ONE (19:14)
[2019-02-16] MEDS ORDERED: glycopyrrolate 0.2mg/ml inj ONE (19:14)
[2019-02-16] MEDS ORDERED: ceFAZolin 1000mg inj ONE (20:14)
[2019-02-16] MEDS: insulin glargine (Lantus) pen - multi-dose SQ SCH (21:00)
--- NOTE | 2019-02-16 21:10 | NUR ---
ADMITTED TO PACU FROM OR ACCOMPANIED BY ANESTHESIA. INTIAL PHYSICAL ASSESSMENT DONE AND RECORDED. REPORT RECEIVED FROM ANESTHESIA.
--- NOTE | 2019-02-16 22:10 | NUR ---
PACU DISCHARGE CRITERIA MET, REPORT GIVEN TO FLOOR. DENIES PAIN OR DISCOMFORT, TRANSFERRED TO ROOM IN STABLE GOOD CONDITION.
--- NOTE | 2019-02-16 22:28 | NUR ---
Pt arrived to floor from surgery. States pain 09/21. VSS. Has binder in place, colostomy bag under binder. DEDE drain, minimal serosang output. A&O.
[2019-02-17] VITALS (7 sets, daily range): BP systolic 100–134; BP diastolic 66–91
[2019-02-17] MEDS: metroNIDAZOLE-Flagyl 500mg/NS 100 ML IV SCH ×3 (00:20→17:15)
[2019-02-17] MEDS: metoclopramide 5 mg/ml inj IV SCH ×4 (02:10→20:33)
[2019-02-17] MEDS: HYDROcodone/acetaminophen 10/325mg tab PO PRN ×3 (02:15→13:19)
[2019-02-17] MEDS: normal saline 1000ml 1,000 ML IV SCH ×2 (04:55→18:28)
--- NOTE | 2019-02-17 05:33 | NUR ---
Pt c/o discomfort caused by binder. Requesting it to be removed. Advised pt we will need to check with surgeon prior to removing. Loosened for comfort.
--- NOTE | 2019-02-17 06:30 | NUR ---
Patient in room [facility] 347. I have received report from Helen and had the opportunity to ask questions and assume patient care.
--- NOTE | 2019-02-17 06:46 | NUR ---
Problems reprioritized. Patient report given, questions answered & plan of care reviewed with ANURAG Elkins.
--- NOTE | 2019-02-17 07:01 | NUR ---
Patient in room [facility]. I have received report from ANURAG PADILLA and had the opportunity to ask questions and assume patient care.
[2019-02-17] MEDS: methylnaltrexone br 12mg/0.6ml inj***SubQ only SQ SCH (07:58)
[2019-02-17] MEDS: magnesium hydroxide 30ml (MOM) UD suspension PO SCH ×2 (08:00→20:31)
[2019-02-17] MEDS: pantoprazole 40mg Tablet.DR PO SCH (08:00)
[2019-02-17] MEDS: lactobacillus rhamnosus 10,000 MMU CELLS/CAPSULE PO SCH ×2 (08:00→20:31)
[2019-02-17] MEDS: heparin, porcine 5000 units/ml vial SQ SCH ×2 (08:01→20:32)
[2019-02-17] MEDS: lactose-reduced food (Ensure High Protein) 237ml bottle PO SCH ×3 (08:10→18:00)
[2019-02-17] MEDS: insulin Lispro (HumaLOG) vial - multi-dose SQ SCH ×3 (09:30→20:35)
[2019-02-17] MEDS: cefepime 2g/NS 100ml ADVANTAGE 100 ML IV SCH ×2 (09:30→20:31)
[2019-02-17 10:16] LABS: BASOPHILS % (AUTO) 0.2 % (0-1); EOSINOPHILS % (AUTO) 0 % (0-6); HEMATOCRIT 34.6 % (35.0-45.0); HEMOGLOBIN 11.6 g/dl (12.0-16.0); LYMPHOCYTES % (AUTO) 6.9 % (21-51); MEAN CORPUSCULAR HEMOGLOBIN 31.4 PG (27.0-31.0); MEAN CORPUSCULAR HGB CONC 33.5 g/dL (33.0-36.5); MEAN CORPUSCULAR VOLUME 93.8 FL (78-98); MEAN PLATELET VOLUME 8.1 FL (7.4-10.4); MONOCYTES # (AUTO) 1.8 X10'3 (0-0.9); MONOCYTES % (AUTO) 6.3 % (2-12); NEUTROPHILS # (AUTO) 24.4 X10'3 (1.8-7.7); NEUTROPHILS % (AUTO) 86.6 % (42-75); PLATELET COUNT 386 X10'3 (140-440); RED BLOOD COUNT 3.69 X10'6 (4.20-5.60); RED CELL DISTRIBUTION WIDTH 14.2 % (11.5-14.5)
[2019-02-17 10:23] LABS: ALBUMIN 1.5 G/DL (3.4-5.0); ANION GAP 9 (8-16); BLOOD UREA NITROGEN 13 MG/DL (7-18); BUN/CREATININE RATIO 12.5 (6.6-38.0); CALCIUM 7.6 MG/DL (8.5-10.1); CHLORIDE 101 MMOL/L (99-107); CREATININE 1.04 MG/DL (0.40-0.90); GLUCOSE 198 MG/DL (70-104); POTASSIUM 4.5 MMOL/L (3.5-5.1); SODIUM 131 MMOL/L (135-145); TOTAL CARBON DIOXIDE 21.1 MMOL/L (24-32); eGFR 56 ML/MIN
[2019-02-17 10:26] LABS: WHITE BLOOD COUNT 28.2 X10'3 (4.5-11.0)
--- NOTE | 2019-02-17 10:32 | NUR ---
DR OJEDA NOTIFIED OF PATIENT'S CRITICAL WBC OF 28.2
--- NOTE | 2019-02-17 10:39 | NUR ---
Labs came back and WBC is 28.2. Informed about this
[2019-02-17 11:28] LABS: TOTAL CELLS COUNTED 100
[2019-02-17 11:35] LABS: PLATELET ESTIMATE NORMAL; POLYCHROMASIA FEW
[2019-02-17 11:36] LABS: ANISOCYTOSIS FEW; TOXIC GRANULATION 1+
[2019-02-17 11:37] LABS: TOXIC VACUOLATION FEW
--- NOTE | 2019-02-17 13:20 | NUR ---
Witnessed with ANURAG Hood and SN Sivakumar patient receiving 6 units of humalog.
--- NOTE | 2019-02-17 13:58 | NUR ---
Patient has been refusing to get up to ambulate. Patient pre-medicated with [place] as ordered and agreed to ambulate after pain med but now patient teary eyed and reports, " I just can't. I'm sorry, I'm just so tired. I'm just not going to. I have done everything the Dr.'s have asked and everything the nurse's have asked. I just want today to be my day." Educated patient importance of getting out of bed and ambulating. Educated patient post-op activities. Patient continues to refuse. Patient also refusing to have dressing to perinieum changed. Educated patient importance of having dressing changed and patient continues to refused that as well. Will continue educating and encouraging patient to ambulate and have dressing changed. Addendum: 02/17/19 at 1427 by Brittni Cleary RN Patient also educated on infection risk due to not having dressing changed to right perineum.
--- NOTE | 2019-02-17 14:43 | NUR ---
Patient refusing to ambulate or sit on side of bed at this time. Patient stated, " I have done everything they have asked of me the last few days and today I am just tired and I don't want to". Patient was educated on the importance of ambulation especially after surgery but patient still refused. Will report this to the primary nurse.
[2019-02-17] MEDS ORDERED: oxyCODONE/APAP 5-325mg tablet PO PRN ×2 (15:25)
--- NOTE | 2019-02-17 17:08 | NUR ---
record press tenderShannen went in to speak to patient and patient continues to refuse ambulating however patient finally agreeable to sitting on side of bed and dangling feet. Assisted patient to sitting position on side of bed dangled feet. Patient then assisted to standing position with FWW and gaitbelt and patient walked in place while bed linen was being changed. Patient returned to bed. Patient continues to refuse dressing changed to right perineum.
--- NOTE | 2019-02-17 17:50 | NUR ---
Student documentation: I have reviewed and agree with all interventions, assessments performed and documented by sn donis. Student Medication Administration: For this medication-pass time frame, all medication were reviewed, dispensed, administered and documented per hospital policy by SN Sivakumar.
--- NOTE | 2019-02-17 18:37 | NUR ---
Problems reprioritized. Patient report given, questions answered & plan of care reviewed with Pat.
--- NOTE | 2019-02-17 18:53 | NUR ---
Problems reprioritized. Patient report given, questions answered & plan of care reviewed with ARCHANA RN.
[2019-02-17] MEDS: insulin glargine (Lantus) pen - multi-dose SQ SCH (23:09)
[2019-02-18] VITALS: BP 122/71
[2019-02-18] MEDS: metroNIDAZOLE-Flagyl 500mg/NS 100 ML IV SCH ×2 (00:07→13:54)
[2019-02-18] MEDS: metoclopramide 5 mg/ml inj IV SCH ×4 (02:00→20:00)
[2019-02-18] MEDS: HYDROcodone/acetaminophen 10/325mg tab PO PRN ×2 (02:09→10:17)
[2019-02-18] MEDS: normal saline 1000ml 1,000 ML IV SCH ×2 (05:35→14:17)
[2019-02-18 05:42] LABS: BASOPHILS # (AUTO) 0.1 X10'3 (0-0.2); BASOPHILS % (AUTO) 0.3 % (0-1); EOSINOPHILS % (AUTO) 0.2 % (0-6); HEMATOCRIT 31.4 % (35.0-45.0); HEMOGLOBIN 10.7 g/dl (12.0-16.0); LYMPHOCYTES # (AUTO) 4.1 X10'3 (1.1-4.8); LYMPHOCYTES % (AUTO) 15.4 % (21-51); MEAN CORPUSCULAR HEMOGLOBIN 31.9 PG (27.0-31.0); MEAN CORPUSCULAR HGB CONC 34.2 g/dL (33.0-36.5); MEAN CORPUSCULAR VOLUME 93.3 FL (78-98); MEAN PLATELET VOLUME 8.2 FL (7.4-10.4); MONOCYTES # (AUTO) 2.2 X10'3 (0-0.9); MONOCYTES % (AUTO) 8.2 % (2-12); NEUTROPHILS # (AUTO) 20.4 X10'3 (1.8-7.7); NEUTROPHILS % (AUTO) 75.9 % (42-75); PLATELET COUNT 413 X10'3 (140-440); RED BLOOD COUNT 3.36 X10'6 (4.20-5.60); RED CELL DISTRIBUTION WIDTH 13.7 % (11.5-14.5)
[2019-02-18 05:58] LABS: WHITE BLOOD COUNT 26.8 X10'3 (4.5-11.0)
[2019-02-18 06:02] LABS: ALANINE AMINOTRANSFERASE 14 U/L (12-78); ALBUMIN 1.4 G/DL (3.4-5.0); ALBUMIN/GLOBULIN RATIO 0.3 (1.1-1.5); ALKALINE PHOSPHATASE 109 IU/L (46-116); ANION GAP 9 (8-16); ASPARTATE AMINO TRANSFERASE 29 U/L (10-37); BILIRUBIN,TOTAL 0.5 MG/DL (0.1-1.0); BLOOD UREA NITROGEN 17 MG/DL (7-18); BUN/CREATININE RATIO 12.6 (6.6-38.0); CALCIUM 7.5 MG/DL (8.5-10.1); CHLORIDE 97 MMOL/L (99-107); CREATININE 1.35 MG/DL (0.40-0.90); GLUCOSE 167 MG/DL (70-104); PHOSPHORUS 3.1 MG/DL (2.3-4.5); SODIUM 127 MMOL/L (135-145); TOTAL CARBON DIOXIDE 21.3 MMOL/L (24-32); TOTAL PROTEIN 6.1 G/DL (6.4-8.2); eGFR 42 ML/MIN
[2019-02-18 07:00] VITALS: BP 125/85
[2019-02-18] MEDS: lactose-reduced food (Ensure High Protein) 237ml bottle PO SCH ×3 (08:00→18:00)
[2019-02-18] MEDS: cefepime 2g/NS 100ml ADVANTAGE 100 ML IV SCH ×2 (08:10→20:00)
[2019-02-18] MEDS: heparin, porcine 5000 units/ml vial SQ SCH ×2 (08:11→20:01)
[2019-02-18] MEDS: magnesium hydroxide 30ml (MOM) UD suspension PO SCH ×2 (08:11→20:00)
[2019-02-18] MEDS: pantoprazole 40mg Tablet.DR PO SCH (08:12)
[2019-02-18] MEDS: lactobacillus rhamnosus 10,000 MMU CELLS/CAPSULE PO SCH ×2 (08:12→20:01)
[2019-02-18 11:11] LABS: TOTAL CELLS COUNTED 100
[2019-02-18 11:16] LABS: PLATELET ESTIMATE NORMAL; POLYCHROMASIA FEW; SPHEROCYTES FEW
--- NOTE | 2019-02-18 12:43 | NUR ---
DEDE drain removed per MD order. Patient tolerated well. 35 mLs of serosanguinous fluid drained.
--- NOTE | 2019-02-18 13:55 | NUR ---
D/C'd patient's IV due to possible DVT. Was waiting for orders for a PICC line and possible transfer. At this time obtained IV access on oppsite arm will hang IV ABX per pharmacy order.
[2019-02-18] MEDS ORDERED: metroNIDAZOLE-Flagyl 500mg/NS 100 ML IV SCH (14:00)
[2019-02-18] MEDS: insulin Lispro (HumaLOG) vial - multi-dose SQ SCH (15:52)
--- NOTE | 2019-02-18 18:25 | NUR ---
Problems reprioritized. Patient report given, questions answered & plan of care reviewed with ANURAG PADILLA.
--- NOTE | 2019-02-18 19:10 | NUR ---
Patient in room [facility]. I have received report from ANURAG ORTIZ and had the opportunity to ask questions and assume patient care.
--- NOTE | 2019-02-18 19:10 | NUR ---
Received report that patient is going to be transfer at [facility]. Called report to [facility] and spoke with ANURAG Cox, notified family as about transfer to [facility] (son). PICC line placed today and a PIV on RUE. Pt awake at the moment with stable VS and denies pain awaiting for transfer.
--- NOTE | 2019-02-18 19:15 | NUR ---
Patient in room [facility]. I have received report from ANURAG Segovia and had the opportunity to ask questions and assume patient care. Addendum: 02/18/19 at 1915 by Asia Zamora RN Amended: Links added.
--- NOTE | 2019-02-18 21:08 | NUR ---
patient left at 2039 with 2 EMT transfer to [facility]. Pt's 1999 medications were given. Not in pain and in no acute distress.
== END 2019-02-18 20:30 | DRG 518 ==
LOC: ER 18:30 → CICU 2S 23:31 → SUR 3N 02-09 15:54
PROVIDERS: ADMIT Surgery; ATTEND Family Medicine
PROC: 0JB90ZZ Excision of Buttock Subcutaneous Tissue and Fascia, Open Approach (ICD-10-PCS; 2019-02-02)
PROC: 5A1955Z Respiratory Ventilation, Greater than 96 Consecutive Hours (ICD-10-PCS; 2019-02-02)
PROC: 0BH17EZ Insertion of Endotracheal Airway into Trachea, Via Natural or Artificial Opening (ICD-10-PCS; 2019-02-02)
PROC: 0JBB0ZZ Excision of Perineum Subcutaneous Tissue and Fascia, Open Approach (ICD-10-PCS; 2019-02-02)
PROC: 0JBB0ZZ Excision of Perineum Subcutaneous Tissue and Fascia, Open Approach (ICD-10-PCS; 2019-02-04)
PROC: 0JBB0ZZ Excision of Perineum Subcutaneous Tissue and Fascia, Open Approach (ICD-10-PCS; 2019-02-06)
PROC: 0D1N0Z4 Bypass Sigmoid Colon to Cutaneous, Open Approach (ICD-10-PCS; 2019-02-10)
PROC: 0WQF0ZZ Repair Abdominal Wall, Open Approach (ICD-10-PCS; principal; 2019-02-10 17:34)
PROC: CF141ZZ Planar Nuclear Medicine Imaging of Gallbladder using Technetium 99m (Tc-99m) (ICD-10-PCS; 2019-02-14)
PROC: 0FT40ZZ Resection of Gallbladder, Open Approach (ICD-10-PCS; 2019-02-16)
PROC: 0D1N0Z4 Bypass Sigmoid Colon to Cutaneous, Open Approach (ICD-10-PCS; 2019-02-16)
PROC: 3E10X8Z Irrigation of Skin and Mucous Membranes using Irrigating Substance (ICD-10-PCS; 2019-02-16)
PROC: 4A02X4A Measurement of Cardiac Electrical Activity, Guidance, External Approach (ICD-10-PCS; 2019-02-18)
PROC: 02HV33Z Insertion of Infusion Device into Superior Vena Cava, Percutaneous Approach (ICD-10-PCS; 2019-02-18)
PROC: B548ZZA Ultrasonography of Superior Vena Cava, Guidance (ICD-10-PCS; 2019-02-18)
DX: N76.89 Other specified inflammation of vagina and vulva (principal); J96.00 Acute respiratory failure, unspecified whether with hypoxia or hypercapnia; M72.6 Necrotizing fasciitis; E66.01 Morbid (severe) obesity due to excess calories; E11.65 Type 2 diabetes mellitus with hyperglycemia; E87.1 Hypo-osmolality and hyponatremia; K80.10 Calculus of gallbladder with chronic cholecystitis without obstruction; I80.8 Phlebitis and thrombophlebitis of other sites; K42.9 Umbilical hernia without obstruction or gangrene; T81.30XA Disruption of wound, unspecified, initial encounter; Y83.3 Surgical operation with formation of external stoma as the cause of abnormal reaction of the patient, or of later complication, without mention of misadventure at the time of the procedure; L08.9 Local infection of the skin and subcutaneous tissue, unspecified; Z68.43 Body mass index [BMI] 50.0-59.9, adult; Z98.891 History of uterine scar from previous surgery; Z79.4 Long term (current) use of insulin; Z79.84 Long term (current) use of oral hypoglycemic drugs; Z56.0 Unemployment, unspecified; Y92.89 Other specified places as the place of occurrence of the external cause; Z79.899 Other long term (current) drug therapy
CPT/HCPCS: 36415; 36569; 36600; 71045; 74177; 76937; 78226; 80048; 80053; 80202; 81001; 82803; 82948; 83036; 83605; 83735; 84100; 84132; 84145; 85018; 85025; 85610; 85730; 86885; 86900; 86901; 86920; 87040; 87070; 87075; 87076; 87077; 87081; 87088; 87102; 87186; 93005; 93971; 94002; 94003; 94760; 96365; 97110; 97116; 97162; 97530; 99291; A4215; A4338; A4421; A4618; A6253; A6402; A6446; A6449; A6550; A7000; A9537; C9113; C9399; G0378; J0330; J0690; J0692; J0694; J1100; J1170; J1580; J1644; J1815; J1940; J2001; J2212; J2250; J2270; J2370; J2405; J2543; J2704; J2710; J2765; J2805; J3010; J3370; J3475; J3480; J3490; J7030; J7120; P9045; Q9963; Q9967